=== PATIENT | male | born 1970 | race African-American/Black ===

== ENCOUNTER 2025-02-11 09:20 | Emergency (ER) | payer OTHER, SELFPAY ==
--- OUTSIDE RECORDS SUMMARY | 2024-12-17 06:19 | XMS_ITS | Continuity of Care Document ---
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 [address], [place], [place], [id number], [place]. tel:[phone] Family History Family Member Type Diagnosis Age At Onset No Information Payers Payer name Insurance type Covered constitution party ID Authoriza tion(s) No Information Social History Type Description Quantity Date Captured Comments Sex Male Smoking Status No Information Chief Complaint And Reason For Visit No Information Reason For Referral Reason For Referral No Information History Of Present Illness Encounter Date Complaint History Of Prese nt Illness No Information Functional Status Date Functional Assessmen t No Information Instructions Date Instruction Additional Infor mation No Information Assessments Type Assessment Date No Information Patient Care Teams Name Effective Dates (start - stop) Status Members No Information
--- OUTSIDE RECORDS SUMMARY | 2025-02-10 08:40 | XMS_ITS ---
Author Organization [facility] Address [address] [place] [address] Care Team Providers Care Hand Ii Thermal Cutter Name Role Phone Josafat Edgard Primary Care Provider Juan Quesada Unavailable [phone] Allergies Allergen (clinical drug ingredient) Drug/Non Drug Allergy documented on EMR Reaction Allergy Type Onset Date Status Penicillin Unknown Drug Allergy Active REASON FOR VISIT new patient Medications Medication SIG (Take, Route, Frequency, Duration) Notes Start Date End Date Status Nicotine 7 MG/24HR 1 patch to skin Transdermal Once a day Active hydrOXYzine Pamoate 25 MG 1-2 capsules O rally every 4 hours as needed for anxiety, agitation, or inability to sleep. Do not give within 4 hours of diphenhydramine.; Duration: 30 days 02/08/2025 Active Melatonin 5 MG 1 tablet at bedtime as needed Orally Once a day; Duration: 30 days 02/08/2025 Active Losartan Potassium-HCTZ 50-12.5 MG 1 tablet Orally Once a day; Duration: 30 days Active metFORMIN HCl 500 MG 1 tablet with a claudio l Orally Once a day; Duration: 30 days Active Suboxone 8-2 MG 1 film under the ton patricia and allow to dissolve Sublingual twice a day 02/10/2025 Active Multi Vitamin - 1 tablet Orally Once a day; Duration: 30 days 02/08/2025 Active Nicotine Polacrilex 4 MG 1 lozenge as ne eded for nicotine cravings Mouth/Throat Up to once per hour (maximum of 15 lozenges per day); Duration: 7 days 02/08/2025 Active Social History Tobacco Use: Social History Observation Description Date Details (start date - stop date) Current Smoker NA - NA PRAPARE Question Answer Notes Date Completed/Updated: 02/08/2025 What is your current housing situation? I do not have housing (staying with others, in a hotel, in a fdc, living outside on the street, on a beach, or in a park) Are you worried about losing your housing? Yes What is the highest level of school that you have finished? More than high school What is your current work situation? Unemployed and seeking work In the past year, have you o r any family members you live with been unable to get any of the following when it was really needed? Check all that apply Food,Clothing,Utilities,Medicine or any health care (medical, dental, mental health or vision),Phone Has lack of transportation k ept you from medical appointments, meetings, work or from getting things needed for daily living? Yes, it has kept me from medical appointments or from getting my medications,Yes, it has kept me from non-medical meetings, appointments, work, or getting things needed for daily living How often do you see or talk to people that you care about and feel close to? (For example: talking to friends on the phone, visiting friends or family, going to restoration or club meetings) More than 5 times a week How stressed are you? Stress is when someone feels tense, nervous, anxious, or can\t sleep at night because their mind is troubled Very much In the past year have you sp ent more than 2 nights in a row in a prison, nursing home, nursing home center, or juvenile correctional facility? Yes What was your release date? 11/12/2024 Are you a refugee? I choose not to answer this q uestion What country are you from? I choose not to answe r this question Do you feel physically and e motionally safe where you currently live? No In the past year, have you b een afraid of your partner or ex-partner? No PRAPARE Score: 17 Enabling Services Provided? Yes Please specify Case Management Assessment First Visit Tobacco Control (Standard) Question Answer Notes Tobacco use: Current smoker How often do you smoke cigarettes? Some days, bu t not every day How many cigarettes a day do you smoke? 6-10 Are you interested in quitting? Not ready to morales t Additional Findings: Tobacco user Light cigarett e smoker (1-9 cigs/day) Section Notes: Occupation: Currently working Living situation: Supported by and children at home Problems Problem Type SNOMED Code ICD Code Onset Dates Problem Status W/U Status Risk Notes Problem Opioid use disorder (8944339103) Opioid use disorder (F11.99) Active confirmed Problem Obesity (036365298) Obesity (BMI 30-39.9) (E66.9) Active confirmed Problem Tobacco user (628294856) Nicotine dependence with current use (F17.200) Active confirmed Vital Signs Height 69 in 02/10/2025 BMI 34.82 kg/m2 02/10/2025 Blood pressure systolic 124 mm Hg 02/11/20 25 Blood pressure diastolic 82 mm Hg 025 Heart Rate 75 /min 02/10/2025 Oximetry 98 % 02/10/2025 Respiratory Rate 16 /min 02/10/2025 Weight 235.8 lbs 02/10/2025 Encounters Encounter Location Date Provider Diagnosis [facility] [address] [place] [address] 02/10/2025 Juan Stewartnaveen Opioid use disorder F11.99 ; Obesity (BMI 30-39.9) E66.9 and Nicotine dependence with current use F17.200 Assessments Encounter Date Diagnosis (ICD Code) Assessment Notes Treatment Notes Treatment Clinical Notes Section Notes 02/10/2025 Opioid use disorder (ICD-10 - F11.99) Long-standing opioid use history, including pain pills, heroin, and daily fentanyl use. Last opioid use was five days ago; currently admitted for detox. Started Suboxone at [facility]; currently managed on Suboxone. Experiencing mild withdrawal symptoms as Suboxone wears off. Support from family and ongoing recovery efforts, including online meetings and Narcan availability. - Increase Suboxone dose to 8 mg twice daily. - Send prescription for increased Suboxone dose to pharmacy. - Monitor for side effects such as constipation. - Encourage continued participation in recovery meetings. - Advise keeping Narcan available at home. 02/10/2025 Obesity (BMI 30-39.9) (ICD-10 - E66.9) 02/10/2025 Nicotine dependence with current use (ICD-10 - F17.200) 02/10/2025 Other Discussed medication side effects, adverse effects, risks, benefits, as well as interactions. Encouraged non-use of opioids. Has naloxone. Recommended participation in recovery groups and/or counseling services. May contact office with questions or concerns. Patient may self-administer their own medications or may self-administer their own oral medications per [facility] Protocol. Plan Of Treatment Medication Medication Name Sig Start Date Stop Date Notes Suboxone 8-2 MG 1 film under the ton patricia and allow to dissolve Sublingual twice a day 02/10/2025 Treatment Notes Assessment Notes Opioid use disorder Long-standing opioid use history, including pain pills, heroin, and daily fentanyl use. Last opioid use was five days ago; currently admitted for detox. Started Suboxone at [facility]; currently managed on Suboxone. Experiencing mild withdrawal symptoms as Suboxone wears off. Support from family and ongoing recovery efforts, including online meetings and Narcan availability. - Increase Suboxone dose to 8 mg twice daily. - Send prescription for increased Suboxone dose to pharmacy. - Monitor for side effects such as constipation. - Encourage continued participation in recovery meetings. - Advise keeping Narcan available at home. Other Discussed medication side effects, adverse effects, risks, benefits, as well as interactions. Encouraged non-use of opioids. Has naloxone. Recommended participation in recovery groups and/or counseling services. May contact office with questions or concerns. Next Appt Details Follow Up: 2 Weeks, Reason: MAR f/u Provider Name:Romy Acevedo wy, 02/16/2025 11:00:00 AM, [address] [place] [address], [phone], Progress Notes * Melo COLINDOB:1970 ( 54 yo M)Acc No.[id number]:02/10/2025 Patient: Melo SHAW Provider: Ana Quesada, MSN, OIL SEPARATOR, OXYGEN THERAPY TECHNICIAN-C :1970 A ge:54 Y S ex:Male Date:02/10/2025 Phone: Address:[address] [place], [place] [id number] Pcp:Edgard Maurice Check In:01:43 PM SIMULATION ENGINEER Subjective: * Chief Complaints: * N ew patient * HPI: I nterim History: Emergency room visit Y es. Was hospitalized N o. D epression Screening: PHQ-9 L ittle interest or pleasure in doing things?Several days F eeling down, depressed, or hopeless S ever T rouble falling or staying asleep, or sleeping too much S ever F eeling tired or having little energy S ever P oor appetite or overeating N ot at all F eeling bad about yourself or that you are a failure, or have let yourself or your family down N ot at all T rouble concentrating on things, such as reading the newspaper or watching television S M oving or speaking so slowly that other people could have noticed; or the opposite, being so fidgety or restless that you have been moving around a lot more than usual S T houghts that you would be better off or of hurting yourself in some way N ot at all T otal Score 6 I nterpretation M ild Depression Intervention D epression Screening Findings P ositive F ollow-Up for Depression P atient refused intervention S creening: [place] Suicide Severity Rating Scale (LF) D o you want to initiate with S creener form 1 . Wish to be : Have you wished you were or wished you could go to sleep and not wake up? N o 2 . Suicidal Thoughts: Have you actually had any thoughts of killing yourself? N o 6 . Suicide Behavior Question: Have you ever done anything,started to do anything, or prepared to end your life? N o I nterpretation: L ow Risk C SSRS Interpretation and Follow Up Plan: CSSRS Interpretation and Follow Up Plan C SSRS Screen documented using SF Y es R isk Disposition from SF L ow - No Follow Up Plan Required F ollow Up Plan N o Follow Up Plan required at this time. T imeframe of Screening T wanda Taylor epression: Melo Colin, a 54-year-old male, presented for an acute visit focused on opioid detox and Suboxone management. He described a long-standing history of opioid use, beginning with pain pills, progressing to heroin, and most recently daily fentanyl use at a rate of half to one gram per day. His last use was five days ago, and he is currently admitted to the MRU, having started Suboxone at [facility] prior to this encounter. Melo reported experiencing mild withdrawal symptoms as the Suboxone wears off, expressing uncertainty about the effectiveness of his current dosing and questioning the reduction from 8 mg to 4 mg twice daily. He denied any history of intravenous drug use, non-opioid overdoses, and constipation as a side effect of his medication. Melo discussed his ongoing recovery efforts, including attending some online recovery meetings and maintaining Narcan at home for safety. He shared that his and children are supportive of his recovery, and he is currently working. Melo is considering physical therapy for back pain and plans to remain in the 28-day program. These strategies and supports reflect his commitment to recovery and managing his opioid use disorder. Venancio REGAN Initial Assessment: . Substance use history S ubstance Use History, drugs of choice: H eroin, Methamphetamines, OTHER (specify): fentanyl Addiction Treatment History P rior Medications for MOTA treatment S uboxone T herapy/counseling and Recovery support (peers/groups) H istory of therapy/counseling or engagement with recovery support peer/groups P ast involvement in r ecovery support groups (AA/NA, etc.) C urrently involved in recovery support groups (AA, NA, etc.) services? Y es History of Infectious Diseases H istory of viral hepatitis N o H istory of HIV N o H istory of TB N o H istory of other infectious diseases N o History of IV drug use and related infections H istory of injection drug use? N o Acute Trauma A cute Trauma N o Psychiatric History H istory of psychiatric diagnoses? N o Primary Care H as a primary care provider? Y es. See notes for provider. Dr. Gallo courtney primary care visit: Jasvir dominguez last year D isclosure authorization obtained? Y es. staff auditor will obtain disclosure authorization. Assessment and history specific to females F emale/Female at ? N o Hepatitis A and B vaccination status V accination status Hep A D enies vaccination to Hep A. Vaccination encouraged and resources offered. V accination status, Hep B R eports vaccination for Hep B Housing Stability and Employment I s housing stable/safe? 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 Support System: H as a support system: Y es (specify): significant other and children Narcan Access H as Narcan and has been trained on its use??Yes. Prescription Drug Monitoring Program P rescription Drug Monitoring Program reviewed? Y es. No concerns identified. * ROS: B asic ROS: Denies C hills. S weats Admits. A dmits C onstipation. I nsomnia D enies. D enies A nxiety. D enies D epressed Mood.?Denies S uicidal Thoughts. * Medical History: * Surgical History: D enies Past Surgical History * Hospitalization/Major Diagno stic Procedure: B [facility] - detox 01/2025 * Family History: F ather: alive. M other: alive. 1 brother(s) - healthy. . * Social History: P rimary Social History: L iving Arrangement L iving Arrangement: H omeless Alcohol Use A lcohol Use Frequency: W eekly or Daily Illicit Substance Usage I llicit Substance Usage: Y es I nterested in quitting: Y es S ubstance Used: M ethamphetamine Single Question Alcohol Screening H ow many times in the past year have you had (4 for women, or 5 for men) or more drinks in a day? 0 S ocial Determinants: P RAPARE D ate Completed/Updated: 0 02/08/2025 W hat is your current housing situation? I do not have housing (staying with others, in a hotel, in a fdc, living outside on the street, on a beach, or in a park) A re you worried about losing your housing??Yes W hat is the highest level of school that you have finished? M ore than high school W hat is your current work situation? U nemployed and seeking work I n the past year, have you or any family members you live with been unable to get any of the following when it was really needed? Check all that apply F ood,Clothing,Utilities,Medicine or any health care (medical, dental, mental health or vision),Phone H as lack of transportation kept you from medical appointments, meetings, work or from getting things needed for daily living? Y es, it has kept me from medical appointments or from getting my medications,Yes, it has kept me from non-medical meetings, appointments, work, or getting things needed for daily living H ow often do you see or talk to people that you care about and feel close to? (For example: talking to friends on the phone, visiting friends or family, going to restoration or club meetings) M ore than 5 times a week H ow stressed are you? Stress is when someone feels tense, nervous, anxious, or can\t sleep at night because their mind is troubled V jolene much I n the past year have you spent more than 2 nights in a row in a prison, nursing home, nursing home center, or juvenile correctional facility? Y es W hat was your release date? 0 11/12/2024 A re you a refugee? I choose not to answer this question W hat country are you from? I choose not to answer this question D o you feel physically and emotionally safe where you currently live? N o I n the past year, have you been afraid of your partner or ex-partner? N o P RAPARE Score: 1 7 E nabling Services Provided? Y es P lease specify C ase Management Assessment First Visit T obacco Use: T obacco Control (Standard) T obacco use: C urrent smoker H ow often do you smoke cigarettes? S ome days, but not every day H ow many cigarettes a day do you smoke? 6 -10 A re you interested in quitting? N ot ready to quit A dditional Findings: Tobacco user L ight cigarette smoker (1-9 cigs/day) M iscellaneous: M ethod of learning P referred method of learning: Anup Syed ccupation: Currently working Living situation: Supported by and children at home. * Medications: T akingNicotine Polacrilex 4 MG Lozenge 1 lozenge as needed for nicotine cravings Mouth/Throat Up to once per hour (maximum of 15 lozenges per day) Multi Vitamin - Tablet 1 tablet Orally Once a day Melatonin 5 MG Tablet 1 tablet at bedtime as needed Orally Once a day hydrOXYzine Pamoate 25 MG Capsule 1-2 capsules Orally every 4 hours as needed for anxiety, agitation, or inability to sleep. Do not give within 4 hours of diphenhydramine. Suboxone 4-1 MG Film 1 film under the tongue and allow to dissolve Sublingual twice a day Nicotine 7 MG/24HR Patch 24 Hour 1 patch to skin Transdermal Once a day Losartan Potassium-HCTZ 50-12.5 MG Tablet 1 tablet Orally Once a day metFORMIN HCl 500 MG Tablet 1 tablet with a meal Orally Once a day Medication List reviewed and reconciled with the patientTaking Nicotine Polacrilex 4 MG Lozenge 1 lozenge as needed for nicotine cravings Mouth/Throat Up to once per hour (maximum of 15 lozenges per day) Taking Multi Vitamin - Tablet 1 tablet Orally Once a day Taking Melatonin 5 MG Tablet 1 tablet at bedtime as needed Orally Once a day Taking hydrOXYzine Pamoate 25 MG Capsule 1-2 capsules Orally every 4 hours as needed for anxiety, agitation, or inability to sleep. Do not give within 4 hours of diphenhydramine. Taking Suboxone 4-1 MG Film 1 film under the tongue and allow to dissolve Sublingual twice a day Taking Nicotine 7 MG/24HR Patch 24 Hour 1 patch to skin Transdermal Once a day Taking Losartan Potassium-HCTZ 50-12.5 MG Tablet 1 tablet Orally Once a day Taking metFORMIN HCl 500 MG Tablet 1 tablet with a meal Orally Once a day Medication List reviewed and reconciled with the patient * Allergies: P enicillinno[Allergies Verified] Objective: * Vitals: I nitials:KS, Wt:235.8, Ht:69, BMI:34.82, BP:124/82, HR:75, Oxygen sat %:98, RR:16, Pain scale:7. * Examination: A [facility] Physical Assessment: Intoxication and Withdrawal signs I ntoxication signs N o signs of intoxication are present during examination. W ithdrawal Signs N o withdrawal signs are present during examination. . G eneral Examination: GENERAL APPEARANCE: p leasant, in no acute distress. SKIN: w arm and dry. HEART: r egular rate and rhythm. LUNGS: r espirations regular and easy. PSYCH: a lert, oriented x4, speech clear, good eye contact, full range of affect/positive mood, thought process logical, goal directed. Assessment: * Assessment: 1. O besity (BMI 30-39.9) - E66.9 2 . O pioid use disorder - F11.99 (Primary) 3 . N icotine dependence with current use - F17.200 Plan: * Treatment: 2. O thers Notes: Discussed medication side effects, adverse effects, risks, benefits, as well as interactions. Encouraged non-use of opioids. Has naloxone. Recommended participation in recovery groups and/or counseling services. May contact office with questions or concerns. Clinical Notes: Patient may self-administer their own medications or may self-administer their own oral medications per [facility] Protocol. * Recommended Wellness and Pre vention Guidelines: * S tatus A lert L ast Done N ext Due A ction Taken N ONCOMPLIANT C olorectal cancer screening - 0 02/10/2025 - - N ONCOMPLIANT H IV screening - 0 02/10/2025 - - * Procedure Codes: 9 8960 SELF-MGMT EDUC & TRAIN, 1 [id number] BODY MASS INDEX DOCD * Preventive Medicine: Counseling: S MOKING: Patient counselled on the dangers of tobacco use and urged to quit. . C are goal follow-up plan: BMI management provided Y es Above Normal BMI Follow-up L ifestyle education regarding diet * Follow Up: 2 Weeks (Reason: Jul/) * * Sign off status: Completed true * Provider: Ana Quesada MSN, PRADIP, OXYGEN THERAPY TECHNICIAN-C Date: 0 02/10/2025 Generated for Raj ferraro/Bryant/Rohitransmitting on: 0 02/11/2025 11:08 AM CDT History and Physical Notes * HPI (History of Present Illness) Category Sub-Category Detail Notes Category Not es Interim History Was hospitalized No Emergency room visit Yes Depression Melo Colin, a 54-year-old male, presented for an acute visit focused on opioid detox and Suboxone management. He described a long-standing history of opioid use, beginning with pain pills, progressing to heroin, and most recently daily fentanyl use at a rate of half to one gram per day. His last use was five days ago, and he is currently admitted to the MRU, having started Suboxone at [facility] prior to this encounter. Melo reported experiencing mild withdrawal symptoms as the Suboxone wears off, expressing uncertainty about the effectiveness of his current dosing and questioning the reduction from 8 mg to 4 mg twice daily. He denied any history of intravenous drug use, non-opioid overdoses, and constipation as a side effect of his medication. Melo discussed his ongoing recovery efforts, including attending some online recovery meetings and maintaining Narcan at home for safety. He shared that his and children are supportive of his recovery, and he is currently working. Melo is considering physical therapy for back pain and plans to remain in the 28-day program. These strategies and supports reflect his commitment to recovery and managing his opioid use disorder. Depression Screening PHQ-9 Little inte rest or pleasure in doing things: Several days Feeling down, depressed, or hopeless: Se veral days Trouble falling or staying asleep, or sl eeping too much: Several days Feeling tired or having little energy: S everal days Poor appetite or overeating: Not at all Feeling bad about yourself o r that you are a failure, or have let yourself or your family down: Not at all Trouble concentrating on thi ngs, such as reading the newspaper or watching television: Several days Moving or speaking so slowly that other people could have noticed; or the opposite, being so fidgety or restless that you have been moving around a lot more than usual: Several days Thoughts that you would be b juanjo off or of hurting yourself in some way: Not at all Total Score: 6 Interpretation: Mild Depression Intervention Depression Screening Findings: P ositive Follow-Up for Depression: Patient refuse d intervention Screening [place] Suicide Sev erity Rating Scale (LF) Do you want to initiate with: Screener form 1. Wish to be : Have you wished you were or wished you could go to sleep and not wake up?: No 2. Suicidal Thoughts: Have you actually had any thoughts of killing yourself?: No 6. Suicide Behavior Question: Have you ever done anything,started to do anything, or prepared to end your life?: No Interpretation:: Low Risk MAR Initial Assessment History of Infect ious Diseases History of viral hepatitis: No History of HIV: No History of TB: No History of other infectious diseases: No Acute Trauma Acute Trauma: No History of IV drug use and r elated infections History of injection drug use?: No Psychiatric History History of psychiatric diagn oses?: No Substance use history Substance Use Hist ory, drugs of choice:: Heroin, Methamphetamines, OTHER (specify): fentanyl Addiction Treatment History Prior Medica tions for MOTA treatment: Suboxone Therapy/counseling and Recov jolene support (peers/groups): History of therapy/counseling or engagement with recovery support peer/groups Past involvement in: recovery support groups (AA/NA, etc.) Currently involved in recovery support groups (AA, NA, etc.) services?: Yes Primary Care Has a primary care provider?: Kelton le See notes for provider. Dr. Holder Last primary care visit:: Within last year Disclosure authorization obtained?: Yes. staff auditor will obtain disclosure authorization. Assessment and history speci fic to females Female/Female at ?: No Hepatitis A and B vaccination status Vac cination status Hep A: Denies vaccination to Hep A. Vaccination encouraged and resources offered. 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 Support System: Has a support system :: Yes (specify): significant other and children Narcan Access Has Narcan and has b een trained on its use?: Yes. Prescription Drug Monitoring Program Prescription Drug Monitoring Program reviewed?: Yes. No concerns identified. CSSRS Interpretation and Follow Up Plan CSSRS Interpretation and Follow Up Plan CSSRS Screen documented using SF: Yes Risk Disposition from SF: Low - No Follo w Up Plan Required Follow Up Plan: No Follow Up Plan requir ed at this time. Timeframe of Screening: Today Examination Category Sub-Category Detail Notes Category Not es General Examination GENERAL APPEARANCE: pleasant, in n o acute distress HEART: regular rate and rhy thm LUNGS: respirations regular and easy SKIN: warm and dry PSYCH: alert, oriented x4, speech clear, good eye contact, full range of affect/positive mood, thought process logical, goal directed ASAM Physical Assessment Intoxication an d Withdrawal signs Intoxication signs: No signs of intoxication are present during examination. . Withdrawal Signs: No withdrawal signs ar e present during examination.
--- NOTE | ~2025-02-11 | CT_ITS ---
EXAMINATION: CTA chest PE protocol, 02/11/2025 10:28 CDT HISTORY: right sided chest pain COMPARISON: No comparisons available. TECHNIQUE: CTA examination is obtained with contrast CTA examination technique is performed with arterial phase of contrast-enhancement. 3-D reconstruction with thin MIP axial and MPR coronal imaging is provided Isovue 300, 92cc injected IV. One or more of the following dose reduction techniques were used: automated exposure control, adjustment of the mA and/or kV according to patient size, use of iterative reconstruction technique. FINDINGS: No significant coronary calcification is present ([id number]) LUNGS: Contrast bolus limited, there is no gross central pulmonary embolism identified. No tracheomalacia. No bronchiectasis. Minimal emphysematous changes. Minimal pulmonary fibrotic changes. No honeycombing or evidence of bullous formation. There are scattered sub-2 mm micronodules. HEART AND PERICARDIUM: Mild cardiomegaly. AORTA: Normal caliber aorta.. PULMONARY ARTERIES: No pulmonary embolism ADENOPATHY/MEDIASTINUM: None. LIMITED VIEWS OF THE ABDOMEN: Within normal limits. OSSEOUS STRUCTURES: No sclerotic or lytic lesions. No acute rib fractures. OVERLYING SOFT TISSUES: Unremarkable. THYROID: The thyroid is unremarkable. IMPRESSION: 1. Negative for pulmonary embolism. No acute process. Incidental findings above Reviewed, dictated and finalized at location A.
--- NOTE | ~2025-02-11 | XR_ITS ---
Examination: XR chest 2V Clinical History: chest pain, mid sternal, h/o HTN Comparison: None Technique: PA and Lateral Findings: Heart size upper limit of normal. Lungs clear. No acute bony abnormality. IMPRESSION: 1. No acute cardiopulmonary findings. Reviewed, dictated and finalized at location R.
--- NOTE | 2025-02-11 09:23 | ECG_ITS ---
Test Date: 2025-02-11 09:27:50 Measurements Intervals [place] Rate: 67 P: 54 CO: 180 QRS: 18 QRSD: 104 T: 30 QT: 398 QTc: 421 Interpretive Statements SINUS RHYTHM NONSPECIFIC T-WAVE ABNORMALITY BORDERLINE ECG No previous ECG available for comparison Electronically Signed On 02-11-2025 12:44:34 CDT by Trey Lim M.D.
[2025-02-11 09:32] VITALS: BP 128/69; PULSE 64; RESP 14; TEMP 36.7; O2SAT 100
[2025-02-11 09:38] VITALS: O2SAT 100
[2025-02-11 09:39] VITALS: PULSE 64
[2025-02-11 09:46] LABS: Hematocrit 40.5 % (42.0-52.0); Hemoglobin 13.1 g/dL (14.0-18.0); Immature Granulocyte Percent A 0.2 % (0-0.5); Lymphocytes Absolute Auto 2.81 K/mm3 (0.9-3.2); Mean Corpuscular HGB Conc 32.3 g/dl (32-36); Mean Corpuscular Hemoglobin 30.0 pg (26-34); Mean Corpuscular Volume 92.7 fl (80-100); Nucleated Red Blood Cells Absolute Auto 0.000 K/mm3 (0.0-0.012); Nucleated Red Blood Cells Perc 0.0 % (0.0-0.2); Platelet Count Result 258 k/mm3 (150-375); Red Blood Count 4.37 M/mm3 (4.6-6.20); White Blood Count 8.2 K/mm3 (4.5-10.0)
[2025-02-11 09:56] LABS: INR 0.9; Prothrombin Time 12.3 Seconds (11.1-14.7)
[2025-02-11 09:57] LABS: Partial Thromboplastin Time 31.0 Seconds (22.3-36.8)
--- NOTE | 2025-02-11 10:01 | ED.GENADULT ---
HPI - General Adult General Chief complaint: Chest Pain Stated complaint: chest pain x2d Time Seen by Provider: 02/11/25 09:24 History of Present Illness HPI narrative: 54-year-old male presents to the emergency department for evaluation for intermittent right-sided chest pain it has been ongoing for the last 2 days. Patient describes a right-sided sharp chest pain that is worsened with inspiration it sometimes. At time of evaluation patient denies any current chest pain or chest pressure. Patient denies any radiation of the pain to his neck back or arms. Patient denies any associated shortness of breath. Patient denies any prior cardiac history. Patient also does have some lower extremity edema bilaterally. Patient is currently at [facility] for fentanyl rehabilitation Related Data Allergies Allergy/AdvReac Type Severity Reaction Status Date / Time Penicillins Allergy Severe Hives Verified 02/11/25 09:43 Review of Systems Review of Systems: All systems reviewed & are unremarkable except as noted in HPI and below Exam Narrative: APPEARANCE: Well appearing, no pain, no distress, well-nourished. HEAD: normocephalic, atraumatic. EYES: PERRLA/EOMI, conjunctivae clear. NOSE: Normal no drainage EARS:TMS clear with good light reflex. THROAT: Pharynx clear, no exudate. NECK: Supple. No adenopathy, no masses. RESPIRATORY: Airway patent, respirations nonlabored. Clear to auscultation bilaterally, no rales, rhonchi, wheezing. CARDIOVASCULAR: Regular rate and rhythm without murmurs rubs or gallops. ABDOMINAL: Soft, nontender, nondistended, normal bowel sounds MUSCULOSKELETAL: Moves all extremities. Strength/ROM intact, No edema, No calf tenderness. NEURO: Alert. Cranial nerves II through XII intact. Good gait. Good coordination SKIN: Warm, dry. Normal Color Course Vital Signs Vital signs: Vital Signs Temperature 98.0 F 02/11/25 09:32 Pulse Rate 64 02/11/25 09:32 Respiratory Rate 14 02/11/25 09:32 Blood Pressure 128/69 02/11/25 09:32 Pulse Oximetry 100 02/11/25 09:32 Oxygen Delivery Room Air 02/11/25 09:32 Temperature 98.0 F 02/11/25 09:32 Pulse Rate 56 L 02/11/25 13:00 Respiratory Rate 16 02/11/25 13:00 Blood Pressure 138/64 02/11/25 13:00 Pulse Oximetry 98 02/11/25 13:00 Oxygen Delivery Room Air 02/11/25 09:38 Medical Decision Making MDM Narrative Medical decision making narrative: 54-year-old male present to the emergency department for evaluation for right-sided chest wall pain. Patient is currently afebrile with no leukocytosis, hemoglobin 13.1. Patient has INR of 0.9. No acute abnormalities on the CMP and patient had negative serial troponins and a normal BNP. CTA was negative for pulmonary embolism. Patient's drug screen was negative. Patient's symptoms are less concerning for pulmonary is some and ACS. Patient does describe symptoms consistent with pleurisy. Patient's leg swelling is bilateral patient does not have a significantly elevated proBNP. Low concern for DVT. No evidence of cellulitis. Patient was updated the results of the workup. Patient was advised to take Tylenol and ibuprofen for pain control and have close follow-up with his primary care physician. Differential Diagnosis Differential Diagnosis: Pneumonia, pleurisy, pulmonary embolism ACS, pneumothorax Vital Signs Vital Signs: Vital Signs Temperature 98.0 F 02/11/25 09:32 Pulse Rate 64 02/11/25 09:32 Respiratory Rate 14 02/11/25 09:32 Blood Pressure 128/69 02/11/25 09:32 Pulse Oximetry 100 02/11/25 09:32 Oxygen Delivery Room Air 02/11/25 09:32 Temperature 98.0 F 02/11/25 09:32 Pulse Rate 56 L 02/11/25 13:00 Respiratory Rate 16 02/11/25 13:00 Blood Pressure 138/64 02/11/25 13:00 Pulse Oximetry 98 02/11/25 13:00 Oxygen Delivery Room Air 02/11/25 09:38 Lab Data Lab results reviewed: Yes I reviewed the patient's lab results. 02/11/25 09:35 02/11/25 09:35 Labs: Lab Results 02/11/25 02/11/25 02/11/25 Range/Units 09:35 11:18 12:25 WBC 8.2 (4.5-10.0) K/mm3 RBC 4.37 L (4.6-6.20) M/mm3 Hgb 13.1 L (14.0-18.0) g/dL Hct 40.5 L (42.0-52.0) % MCV 92.7 (80-100) fl MCH 30.0 (26-34) pg MCHC 32.3 (32-36) g/dl RDW 15.6 H (11.5-14.5) % Plt Count 258 (150-375) k/mm3 MPV 9.5 (7.4-10.4) fl Immature Gran % (Auto) 0.2 (0-0.5) % Neut % (Auto) 55.9 (45.5-73.1) % Lymph % (Auto) 34.1 (18.3-44.2) % [place] % (Auto) 7.5 (2.6-8.5) % Eos % (Auto) 1.8 (0-4.4) % Baso % (Auto) 0.5 (0.2-1.2) % Lymph # (Auto) 2.81 (0.9-3.2) K/mm3 [place] # (Auto) 0.6 (0.1-0.6) K/mm3 Eos # (Auto) 0.2 (0-0.3) K/mm3 Baso # (Auto) 0.0 (0.0-0.1) K/mm3 Abs Immat Gran (auto) 0.02 (0.00-0.031) K/mm3 Absolute Neuts (auto) 4.6 (1.3-6.7) K/mm3 Absolute Nucleated RBC 0.000 (0.0-0.012) K/mm3 Nucleated RBC % 0.0 (0.0-0.2) % PT 12.3 (11.1-14.7) Seconds INR 0.9 APTT 31.0 (22.3-36.8) Seconds Sodium 137 (137-145) mmol/L Potassium 3.9 (3.4-5.0) mmol/L Chloride 103 (98-107) mmol/L Carbon Dioxide 28 (22-30) mmol/L Anion Gap 6 (4-12) mmol/L BUN 19 (9-20) mg/dL Creatinine 1.05 (0.7-1.3) mg/dL Estim Creat Clear Calc 87 ml/min Estimated GFR > 60 (59 - ) Glucose 121 H (65-110) mg/dL Calcium 9.3 (8.4-10.2) mg/dL Total Bilirubin 0.2 (0.2-1.3) mg/dL AST 22 (17-59) U/L ALT 17 (6-50) U/L Alkaline Phosphatase 96 (38-126) U/L Troponin I < 0.012 < 0.012 (0.000-0.034) ng/mL NT-Pro-B Natriuret Pep < 20 (19.9-100) pg/mL Total Protein 7.2 (6.3-8.2) g/dL Albumin 3.9 (3.5-5.1) g/dL Lipase 58 (23-300) U/L Urine Opiates Screen Negative (Negative) Urine Methadone Screen Negative (Negative) Ur Barbiturates Screen Negative (Negative) Ur Phencyclidine Scrn Negative (Negative) Ur Amphetamine Screen Negative (Negative) U Benzodiazepines Scrn Negative (Negative) Urine Cocaine Screen Negative (Negative) U Cannabinoids Screen Negative (Negative) Imaging Data My impression: Chest x-ray: No acute cardiopulmonary abnormality Radiologist's impression: Impressions Chest X-Ray 02/11/25 10:29 IMPRESSION: 1. No acute cardiopulmonary findings. Chest CTA 02/11/25 10:55 IMPRESSION: 1. Negative for pulmonary embolism. No acute process. Incidental findings above ECG Data EKG #1: EKG Interpretation: bradycardia, sinus rhythm, no ectopy, non-specific ST changes, normal QRS, normal QT and NL axis Discharge Plan Discharge Clinical Impression: Atypical chest pain, Leg edema Patient Disposition: Home Condition: Stable Instructions: Antibiotic Form, Chest Wall Pain (ED), Edema (ED) Additional Instructions: Have close follow-up with your primary care physician. If you have any worsening symptoms then please call or return to the emergency department. Patient Language: [place] Follow-up/Referrals: Gallo,Armando Raymond MD [Primary Care Provider] Quality HEART score for chest pain patients History: slightly suspicious ECG: normal Age: > 45 and < 65 years Risk factors: 1 or 2 risk factors Troponin: < or = to 1x normal limit Heart score: 2
--- NOTE | 2025-02-11 10:10 | PC.NURSE ---
called lab to add on BNP
[2025-02-11 10:11] LABS: Alanine Aminotransferase 17 U/L (6-50); Albumin Level 3.9 g/dL (3.5-5.1); Alkaline Phosphatase 96 U/L (38-126); Anion Gap 6 mmol/L (4-12); Aspartate Amino Transferase 22 U/L (17-59); Bilirubin,Total 0.2 mg/dL (0.2-1.3); Blood Urea Nitrogen 19 mg/dL (9-20); Calcium 9.3 mg/dL (8.4-10.2); Carbon Dioxide 28 mmol/L (22-30); Chloride 103 mmol/L (98-107); Estimated CRCL calculation 87 ml/min; Estimated Glomerular Filt Rate > 60; Glucose 121 mg/dL (65-110); Lipase 58 U/L (23-300); Potassium 3.9 mmol/L (3.4-5.0); Sodium 137 mmol/L (137-145); Total Protein 7.2 g/dL (6.3-8.2)
[2025-02-11 10:18] LABS: Troponin I < 0.012 ng/mL (0.000-0.034)
[2025-02-11 10:31] LABS: NT Pro B Type Natriuretic Pept < 20 pg/mL (19.9-100)
[2025-02-11 10:46] VITALS: BP 128/70; PULSE 81; RESP 11; O2SAT 100
[2025-02-11 11:01] VITALS: PULSE 72; RESP 13; O2SAT 96
[2025-02-11] MEDS: KETOROLAC 15 MG/ML VIAL (*BKC) IV PUSH (11:03)
--- OUTSIDE RECORDS SUMMARY | 2025-02-11 11:08 | XMS_ITS | Clinical Summary ---
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 30 tablet 06/09/2021 Active Family History Relation Status Comments Father Alive Mother Alive Social History Tobacco Use Types Packs/Day Years Used Date Smoking Tobacco: Every Day Cigarettes Smokeless Tobacco: Never Alcohol Use Standard Drinks/Week Comments Yes 0 (1 standard drink = 0.6 oz pur e alcohol) Sex and Gender Information Value Date Recorded Sex Assigned at Not on file Legal Sex Male 8:19 PM CDT Gender Identity Not on file Sexual Orientation Not on file Last Filed Vital Signs Vital Sign Reading Time Taken Comments Blood Pressure 155/97 06/09/2021 8:45 PM INTER[employer] SAL[employer]ERSON Pulse 109 06/09/2021 6:48 PM INTER[employer] SALESPERSON Temperature 36.6 C (97.9 F) 06/09/2021 6:48 PM INTER[employer] SALESPERSON Respiratory Rate 20 06/09/2021 6:48 PM INTER[employer] SALESPERSON Oxygen Saturation 98% 06/09/2021 6:48 PM INTERNET SALESPERSON Inhaled Oxygen Concentration - - Weight 103.9 kg (229 lb) 06/02/2018 3:24 PM INTERNET SALESPERSON Height 175.3 cm (5' 9) 06/09/2021 6:48 PM INTER[employer] SALESPERSON Body Mass Index 33.82 06/02/2018 3:24 PM INTERNET SALESPERSON Plan of Treatment Health Maintenance Due Date Last Done Comments Colorectal Cancer Screening Colonoscopy (10 Years) 1972 Annual Physical 1975 Hepatitis C 1990 Hepatitis B Vaccines (1 of 3 - 19+ 3-dose series) 1991 Pneumococcal Vaccine: 50+ Ye ars (1 of 2 - PCV) 1991 Zoster Vaccines (1 of 2) 2022 COVID-19 Vaccine (1 - 2023-2 5 season) 2025 DTaP, Tdap and Td Vaccines ( 2 - Td or Tdap) 01/02/2031 01/02/2021 Meningococcal B Vaccine Aged Out No l onger eligible based on patient's age to complete this topic Meningococcal Vaccine Aged Out No gabriel mariel eligible based on patient's age to complete this topic RSV Immunizations Under 20 Months Aged Out No longer eligible based on patient's age to complete this topic [place] [address] [place] [address] [facility] Care Teams Strawhat Blocking Operator Relationship Specialty Start Date End Date Armando Holder MD PCP - General 11/16/15
--- OUTSIDE RECORDS SUMMARY | 2025-02-11 11:08 | XMS_ITS | Clinical Summary ---
Author Organization [facility] Address [address] [place] [address] Care Team Providers Care Folder Seamer Automatic Name Role Phone Armando Holder MD Primary Care Provider [phone] Allergies Active Allergy Reactions Criticality Noted Date Comments Penicillins Rash Medium 09/12/2021 As a child Medications metFORMIN (GLUCOPHAGE) 500 mg tablet Take 1 tablet (500 mg total) by mouth daily with breakfast 30 tablet 2 11/20/19 25 Active losartan-hydr oCHLOROthiazi de (HYZAAR) 50-12.5 mg per tablet Take 1 tablet by mouth daily Active buprenorphine -naloxone (SUBOXONE) 4-[address] 1 Film under the tongue 2 (two) times a day 14 Film 02/09/20 25 Active nicotine (NICODERM CQ) [address] 1 patch on the skin daily for 24 hours 30 patch 1 02/09/20 25 025 Active buprenorphine -naloxone (SUBOXONE) 4-1 mg per filmIndicatio ns:Opioid Withdrawal Symptoms Place 1 Film under the tongue 2 (two) times a day for 7 days Please see PCP for continued prescription 14 Film 11/20/19 25 025 Discontinued(A lternate therapy) lisinopriL (PRINIVIL,ZES TRIL) 20 mg tablet Take 1 tablet (20 mg total) by mouth daily 30 tablet 2 11/21/19 25 025 Discontinued(A lternate therapy) nicotine (NICODERM CQ) [address] 1 patch on the skin daily for 24 hours 30 patch 2 07/09/06 24 025 Discontinued(T herapy completed) naloxone (NARCAN) 4 mg/actuation spray,non-aer osol Administer 1 spray into affected nostril(s) as needed for opioid reversal Call 911. Administer a single spray in one nostril. Repeat every 3 minutes as needed if no or minimal response. 2 each 11/20/19 025 Discontinued(T herapy completed) buprenorphine -naloxone (SUBOXONE) 4-[address] 1 Film under the tongue daily 025 Discontinued Active Problems Problem Noted Date Diagnosed Date Opioid use disorder 02/04/2025 HTN (hypertension) 11/18/2024 DM (diabetes mellitus) 11/18/2024 Overview (11/18/2024): Polysubstance abuse 11/17/2024 Encounters Date Type Department Care Team Description 02/04/2025 10:21 AM CDT - 02/08/2025 8:00 AM CDT Hospital Encounter [address] [address] Hilton Garnica DO Lun, Yu, MD Bondalapati, Naveen Kumar Reddy, MD Opioid use disorder (Primary Dx); Methamphetamine use (HCC); Abnormal magnetic resonance imaging of soft tissue of neck Discharge Disposition: Discharge to other rehab with plan readmit 12/28/2024 [facility] [address] [place] [id number] Lynnette Mitchell 11/17/2024 1:51 PM CDT - 11/19/2024 11:30 AM CDT Hospital Encounter [address] [address] Tami Boston MD Patel, Satyen V., MD Lun, Yu, MD Polysubstance abuse (HCC) (Primary Dx) Discharge Disposition: Discharge to home or self care from Last 3 Months Medical History Medical History Date Comments HTN (hypertension) Type 2 diabetes mellitus Social History Tobacco Use Types Packs/Day Years Used Date Smoking Tobacco: Every Day Alcohol Use Standard Drinks/Week Comments Yes 0 (1 standard drink = 0.6 oz pur e alcohol) Social Connection and Isolation Panel Answer Date Recorded In a typical week, how many times do you talk on the phone with family, friends, or neighbors? Three times a week 11/18/2024 How often do you get togethe r with friends or relatives? Three times a week 11/18/2024 How often do you attend chur ch or presybeterian services? Never 11/18/2024 Do you belong to any clubs o r organizations such as congregational groups, Re[employer], [employer] or athletic groups, or school groups? No 11/18/2024 How often do you attend meet ings of the clubs or organizations you belong to? Never 11/18/2024 Are you , , di vorced, , never , or living with a partner? 11/18/2024 Overall Financial Resource Strain (CARDIA) Answe r Date Recorded How hard is it for you to pa y for the very basics like food, housing, medical care, and heating? Not very hard 11/18/2024 PRAPARE - Transportation Answer Date Re corded In the past 12 months, has l ack of transportation kept you from medical appointments or from getting medications? No 06/2024 In the past 12 months, has l ack of transportation kept you from meetings, work, or from getting things needed for daily living? No 11/18/2024 Housing Stability Vital Sign Answer Olvin e Recorded In the last 12 months, was t here a time when you were not able to pay the mortgage or rent on time? No 11/18/2024 In the past 12 months, how m any times have you moved where you were living? 0 11/18/2024 At any time in the past 12 m [facility], were you homeless or living in a residential (including now)? No 11/18/2024 Social Connection and Isolation Panel Answer Date Recorded In a typical week, how many times do you talk on the phone with family, friends, or neighbors? Three times a week 02/05/2025 How often do you get togethe r with friends or relatives? Twice a week 02/05/2025 How often do you attend chur ch or presybeterian services? Never 02/05/2025 Do you belong to any clubs o r organizations such as congregational groups, Re[employer], [employer] or athletic groups, or school groups? No 02/05/2025 How often do you attend meet ings of the clubs or organizations you belong to? Never 02/05/2025 Are you , , di vorced, , never , or living with a partner? 02/05/2025 Overall Financial Resource Strain (CARDIA) Answe r Date Recorded How hard is it for you to pa y for the very basics like food, housing, medical care, and heating? Very hard 02/05/2025 Hunger Vital Sign Answer Date Recorded Within the past 12 months, y ou worried that your food would run out before you got the money to buy more. Sometimes true Within the past 12 months, t he food you bought just didn't last and you didn't have money to get more. Sometimes true PRAPARE - Transportation Answer Date Re corded In the past 12 months, has l ack of transportation kept you from medical appointments or from getting medications? No 01/18 In the past 12 months, has l ack of transportation kept you from meetings, work, or from getting things needed for daily living? No 02/05/2025 Housing Stability Vital Sign Answer Olvin e Recorded In the last 12 months, was t here a time when you were not able to pay the mortgage or rent on time? Yes 02/05/2025 In the past 12 months, how m any times have you moved where you were living? 2 02/05/2025 At any time in the past 12 m [facility], were you homeless or living in a residential (including now)? Yes 02/05/2025 [facility] Utilities Answer Date Recorded In the past 12 months has e [employer], gas, oil, or water [employer] threatened to shut off services in your home? No 02/05/2025 Personal Safety Answer Date Recorded Have you ever been in or are you currently in a harmful physical or emotional relationship or is someone making you feel afraid or unsafe? Denies 02/04/2025 Sex and Gender Information Value Date Recorded Sex Assigned at Not on file Legal Sex Male 6:27 PM [employer] Gender Identity Not on file Sexual Orientation Not on file Obstetrics History Last Filed Vital Signs Vital Sign Reading Time Taken Comments Blood Pressure 147/84 02/08/2025 7:39 AM CDT Pulse 69 02/08/2025 7:39 AM CDT Temperature 37 C (98.6 F) 02/08/2025 4:05 AM CDT Respiratory Rate 18 02/08/2025 4:05 AM CDT Oxygen Saturation 98% 02/08/2025 4:05 AM CDT Inhaled Oxygen Concentration - - Weight 103.1 kg (227 lb 4.8 oz) 02/04/2025 2:06 PM CDT Height 175.3 cm (5' 9) 02/04/2025 2:06 PM CDT Body Mass Index 33.57 02/04/2025 2:06 PM CDT Plan of Treatment Health Maintenance Due Date Last Done Comments Albumin Creatinine Ratio, Urine 1972 Colon Cancer Screening-Colonoscopy 1972 Depression Screening 1972 Prostate Cancer Screening-PSA 1972 Dilated Eye Exam 1972 Foot Exam 1972 Regular Well Visit/Exam 18-64 1990 Pneumococcal vaccine <65 (1 of 2 - PCV) 1991 Lipid Panel 08/21/2018 08/21/2017 Zoster Vaccine (1 of 2) 2022 Influenza Vaccine (#1) 2025 Hemoglobin A1C 08/05/2025 02/05/2025, 07/0 05/2024, 11/17/2024 eGFR 02/08/2026 02/08/2025, 09/2 05/2024, 02/05/2025, Additional history exists DTaP/Tdap/Td Vaccine (2 - Td or Tdap) 01/02/2031 01/02/2021 Hepatitis B Screening Completed 02/04/2025 Hepatitis C Screening Completed 02/04/2025 Procedures Procedure Name Priority Date/Time Associated Diagnosis Comments POCT GLUCOSE DEVICE Routine 02/08/2025 7 :46 AM CDT EGFR Routine 02/08/2025 7:33 AM CDT RENAL FUNCTION PANEL Routine 02/08/2025 7:33 AM CDT POCT GLUCOSE DEVICE Routine 02/07/2025 8 :02 PM CDT POCT GLUCOSE DEVICE Routine 02/07/2025 5 :04 PM CDT POCT GLUCOSE DEVICE Routine 02/07/2025 1 2:42 PM CDT POCT GLUCOSE DEVICE Routine 02/07/2025 8 :43 AM CDT EGFR Routine 02/07/2025 6:34 AM CDT MAGNESIUM Routine 02/07/2025 6:34 AM CDT RENAL FUNCTION PANEL Routine 02/07/2025 6:34 AM CDT POCT GLUCOSE DEVICE Routine 02/06/2025 7 :50 PM CDT POCT GLUCOSE DEVICE Routine 02/06/2025 6 :40 PM CDT POCT GLUCOSE DEVICE Routine 02/06/2025 1 1:49 AM CDT ECG 12-LEAD Routine 02/06/2025 11:17 AM CDT POCT GLUCOSE DEVICE Routine 02/06/2025 7 :40 AM CDT POCT GLUCOSE DEVICE Routine 02/06/2025 4 :28 AM CDT POCT GLUCOSE DEVICE Routine 02/06/2025 1 2:08 AM CDT POCT GLUCOSE DEVICE Routine 02/05/2025 7 :24 PM CDT POCT GLUCOSE DEVICE Routine 02/05/2025 4 :31 PM CDT POCT GLUCOSE DEVICE Routine 02/05/2025 1 1:23 AM CDT POCT GLUCOSE DEVICE Routine 02/05/2025 7 :15 AM CDT EGFR Routine 02/05/2025 4:19 AM CDT DIFFERENTIAL AUTO Routine 02/05/2025 4:1 9 AM CDT CBC WITH AUTO DIFFERENTIAL Routine 02/05/2025 4:19 AM CDT BASIC METABOLIC PANEL Routine 02/05/2025 4:19 AM CDT HEMOGLOBIN A1C Routine 02/05/2025 4:19 AM CDT POCT GLUCOSE DEVICE Routine 02/04/2025 1 0:04 PM CDT RPR Routine 02/04/2025 9:51 PM CDT HEPATITIS C ANTIBODY Routine 02/04/2025 9:51 PM CDT HEPATITIS B SURFACE ANTIBODY (IMMUNE STATUS) Routine 02/04/2025 9:51 PM CDT HEPATITIS B CORE ANTIBODY, TOTAL Routine 02/04/2025 9:51 PM CDT HEPATITIS B SURFACE ANTIGEN Routine 02/04/2025 9:51 PM CDT HEPATITIS A ANTIBODY, TOTAL Routine 02/04/2025 9:51 PM CDT HIV 1/2 ANTIBODY PLUS P24 ANTIGEN Routine 02/04/2025 9:51 PM CDT POCT GLUCOSE DEVICE Routine 02/04/2025 5 :11 PM CDT ECG 12-LEAD STAT 02/04/2025 11:23 AM CDT URINALYSIS, MICROSCOPIC ONLY STAT 02/04/2025 9:04 AM CDT DRUGS OF ABUSE SCREEN, URINE WITHOUT CONFIRMATION STAT 02/04/2025 9:04 AM CDT URINALYSIS AND REFLEX TO MICROSCOPIC AND CULTURE STAT 02/04/2025 9:04 AM CDT MAGNESIUM STAT 02/04/2025 9:02 AM CDT EGFR STAT 02/04/2025 9:02 AM CDT DIFFERENTIAL AUTO STAT 02/04/2025 9:0 2 AM CDT ETHANOL STAT 02/04/2025 9:02 AM CDT THYROID FUNCTION CASCADE STAT 02/04/2025 9:02 AM CDT COMPREHENSIVE METABOLIC PANEL STAT 02/04/2025 9:02 AM CDT CBC WITH AUTO DIFFERENTIAL STAT 02/04/2025 9:02 AM CDT POCT GLUCOSE DEVICE Routine 11/19/2024 8 :25 AM CDT EGFR Routine 11/19/2024 4:00 AM CDT DIFFERENTIAL AUTO Routine 11/19/2024 4:0 0 AM CDT BASIC METABOLIC PANEL Routine 11/19/2024 4:00 AM CDT CBC WITH AUTO DIFFERENTIAL Routine 11/19/2024 4:00 AM CDT POCT GLUCOSE DEVICE Routine 11/18/2024 7 :11 PM CDT POCT GLUCOSE DEVICE Routine 11/18/2024 4 :59 PM CDT POCT GLUCOSE DEVICE Routine 11/18/2024 1 2:15 PM CDT POCT GLUCOSE DEVICE Routine 11/18/2024 8 :06 AM CDT EGFR Routine 11/18/2024 3:12 AM CDT DIFFERENTIAL AUTO Routine 11/18/2024 3:1 2 AM CDT BASIC METABOLIC PANEL Routine 11/18/2024 3:12 AM CDT CBC WITH AUTO DIFFERENTIAL Routine 11/18/2024 3:12 AM CDT POCT GLUCOSE DEVICE Routine 11/17/2024 8 :16 PM CDT IRON PROFILE W/ IBC STAT 11/17/2024 1 1:39 AM CDT VITAMIN B12 STAT 11/17/2024 11:39 AM CDT FERRITIN STAT 11/17/2024 11:39 AM CDT HEMOGLOBIN A1C STAT 11/17/2024 11:39 AM CDT EGFR STAT 11/17/2024 11:39 AM CDT URINALYSIS, MICROSCOPIC ONLY STAT 11/17/2024 11:39 AM CDT DIFFERENTIAL AUTO STAT 11/17/2024 11: 39 AM CDT DRUGS OF ABUSE SCREEN, URINE WITHOUT CONFIRMATION STAT 11/17/2024 11:39 AM CDT ETHANOL STAT 11/17/2024 11:39 AM CDT THYROID FUNCTION CASCADE STAT 11/17/2024 11:39 AM CDT COMPREHENSIVE METABOLIC PANEL STAT 11/17/2024 11:39 AM CDT CBC WITH AUTO DIFFERENTIAL STAT 11/17/2024 11:39 AM CDT URINE CULTURE STAT 11/17/2024 11:39 AM CDT URINALYSIS AND REFLEX TO MICROSCOPIC AND CULTURE STAT 11/17/2024 11:39 AM CDT TNI WITH LIPID PANEL Routine 08/21/2017 11:10 PM CDT from Last 3 Months or Most Recently Relevant to Health Maintenance Results * POCT glucose (02/08/2025 7:46 AM CDT) Glucose, POC 141 70 - 199 mg/dL Blood 02/08/2025 7:46 AM CDT 02/08/2025 7:46 AM CDT Toyin Ramirez MD LAB POCT ORDERABLES - DEVICE Fin al Result Performing Organization Address City/State/[facility] Co de Phone Number ZORAIDA [address] [facility] Department [place] [address] * eGFR (02/08/2025 7:33 AM CDT) eGFR 77 >=60 mL/min/1. 73 m2 Comment: Interpretive Data Reference Interval Normal >/= 90 mL/min/1.73m2 Mildly decreased* 60 - 89 mL/min/1.73m2 Mildly to moderately decreased 45 - 59 mL/min/1.73m2 Moderately to severely decreased 30 - 44 mL/min/1.73m2 Severely decreased 15 - 29 mL/min/1.73m2 Kidney Failure < 15 mL/min/1.73m2 *Relative to young adult level Estimated glomerular filtration rate is determined by the 2020 CKD-EPI equation recommended by the National Kidney Foundation (A Unifying Approach to GFR Estimation: Recommendations of the NKF-ASK Task Force on Reassessing the Inclusion of Race in Diagnosing Kidney Disease, JASN 2020). The CKD-EPI equation should not be used for patients with unstable renal function and has not been validated in children and those over 70. Current interpretive data was last reviewed 2021. Blood 02/08/2025 7:33 AM CDT 02/08/2025 7:59 AM CDT Toyin Ramirez MD LAB BLOOD ORDERABLES Final Resul t Performing Organization Address City/[facility]/ZIP Co de Phone Number [facility] [place] [address] * Renal function panel (02/08/2025 7:33 AM CDT) Pathologist [facility] Sodium 137 135 - 145 mmol/L Potassium, pl 4.0 3.3 - 4.9 mmol/L [facility] Chloride 101 97 - 110 mmol/L [facility] CO2 28 22 - 32 mmol/L [facility] Anion gap 8 2 - 15 mmol/L [facility] BUN 18 6 - 25 mg/dL [facility] Creatinine 1.14 0.80 - 1.30 mg/dL [facility] Glucose 109 70 - 199 mg/dL [facility] Comment: Interpretive Data Fasting glucose >/= 126 mg/dl is diagnostic for diabetes. Fasting is defined as no caloric intake for at least 8 hours. Fasting glucose between 100 mg/dl to 125 mg/dl is diagnostic of prediabetes. In a patient with classic symptoms of hyperglycemia or hyperglycemic crisis, a random glucose >/= 200 mg/dl is diagnostic for diabetes. In the absence of unequivocal hyperglycemia, results should be confirmed by repeat testing. The classification and Diagnosis of Diabetes Diabetes Care 2021; 46: S19-S40. Current interpretive data was last revised 2022. Calcium 9.6 8.5 - 10.3 mg/dL [facility] Phosphorus, pl 2.9 2.3 - 4.5 mg/dL [facility] Albumin 3.9 3.5 - 5.0 g/dL [facility] Blood 02/08/2025 7:33 AM CDT 02/08/2025 7:59 AM CDT Toyin Ramirez MD LAB BLOOD ORDERABLES Final Resul t Performing Organization Address City/[facility]/ZIP Co de Phone Number ZORAIDA [facility] [place] [address] * POCT glucose (02/07/2025 8:02 PM CDT) Glucose, POC 174 70 - 199 mg/dL Blood 02/07/2025 8:02 PM CDT 02/07/2025 8:02 PM CDT Toyin Ramirez MD LAB POCT ORDERABLES - DEVICE Fin al Result Performing Organization Address City/[facility] Co de Phone Number [address] [place] [address] * POCT glucose (02/07/2025 5:04 PM CDT) Glucose, POC 192 70 - 199 mg/dL Glucose comment 1 RN/MD Notified [facility] Blood 02/07/2025 5:04 PM CDT 02/07/2025 5:04 PM CDT Toyin Ramirez MD LAB POCT ORDERABLES - DEVICE Fin al Result Performing Organization Address [facility] Co de Phone Number [address] [place] [address] * POCT glucose (02/07/2025 12:42 PM CDT) Glucose, POC 110 70 - 199 mg/dL Blood 02/07/2025 12:4 2 PM CDT 02/07/2025 12:42 PM CDT Toyin Ramirez MD LAB POCT ORDERABLES - DEVICE Fin al Result Performing Organization Address City/[facility] Co de Phone Number [address] [place] [address] * POCT glucose (02/07/2025 8:43 AM CDT) Glucose, POC 118 70 - 199 mg/dL Blood 02/07/2025 8:43 AM CDT 02/07/2025 8:43 AM CDT Toyin Ramirez MD LAB POCT ORDERABLES - DEVICE Fin al Result Performing Organization Address City/[facility] Co de Phone Number [address] [place] [address] * eGFR (02/07/2025 6:34 AM CDT) eGFR 70 >=60 mL/min/1. 73 m2 Comment: Interpretive Data Reference Interval Normal >/= 90 mL/min/1.73m2 Mildly decreased* 60 - 89 mL/min/1.73m2 Mildly to moderately decreased 45 - 59 mL/min/1.73m2 Moderately to severely decreased 30 - 44 mL/min/1.73m2 Severely decreased 15 - 29 mL/min/1.73m2 Kidney Failure < 15 mL/min/1.73m2 *Relative to young adult level Estimated glomerular filtration rate is determined by the 2020 CKD-EPI equation recommended by the National Kidney Foundation (A Unifying Approach to GFR Estimation: Recommendations of the NKF-ASK Task Force on Reassessing the Inclusion of Race in Diagnosing Kidney Disease, JASN 2020). The CKD-EPI equation should not be used for patients with unstable renal function and has not been validated in children and those over 70. Current interpretive data was last reviewed 2021. Blood 02/07/2025 6:34 AM CDT 02/07/2025 7:43 AM CDT Toyin Ramirez MD LAB BLOOD ORDERABLES Final Resul t Performing Organization Address City/[facility] Co de Phone Number [address] [address] * Magnesium (02/07/2025 6:34 AM CDT) Pathologist [facility] Magnesium 2.0 1.4 - 2.5 mg/dL Blood 02/07/2025 6:34 AM CDT 02/07/2025 7:43 AM CDT Toyin Ramirez MD LAB BLOOD ORDERABLES Final Resul t Performing Organization Address [facility] Co de Phone Number [address] [place] [address] * Renal function panel (02/07/2025 6:34 AM CDT) Pathologist [facility] Sodium 140 135 - 145 mmol/L Potassium, pl 4.1 3.3 - 4.9 mmol/L [facility] Comment:Hemolyzed; Potassium value may be falsely elevated by as much as 1.0 mmol/L. Suggest redraw and reanalysis. Chloride 104 97 - 110 mmol/L [facility] CO2 27 22 - 32 mmol/L [facility] Anion gap 9 2 - 15 mmol/L [facility] BUN 24 6 - 25 mg/dL [facility] Creatinine 1.24 0.80 - 1.30 mg/dL [facility] Glucose 110 70 - 199 mg/dL [facility] Comment: Interpretive Data Fasting glucose >/= 126 mg/dl is diagnostic for diabetes. Fasting is defined as no caloric intake for at least 8 hours. Fasting glucose between 100 mg/dl to 125 mg/dl is diagnostic of prediabetes. In a patient with classic symptoms of hyperglycemia or hyperglycemic crisis, a random glucose >/= 200 mg/dl is diagnostic for diabetes. In the absence of unequivocal hyperglycemia, results should be confirmed by repeat testing. The classification and Diagnosis of Diabetes Diabetes Care 2021; 46: S19-S40. Current interpretive data was last revised 2022. Calcium 9.1 8.5 - 10.3 mg/dL [facility] Phosphorus, pl 2.7 2.3 - 4.5 mg/dL [facility] Albumin 3.6 3.5 - 5.0 g/dL [facility] Blood 02/07/2025 6:34 AM CDT 02/07/2025 7:43 AM CDT Toyin Ramirez MD LAB BLOOD ORDERABLES Final Resul t [facility] [address] [facility] Department [place] [address] * POCT glucose (02/06/2025 7:50 PM CDT) Pathologist [facility] Glucose, POC 121 70 - 199 mg/dL Blood 02/06/2025 7:50 PM CDT 02/06/2025 7:50 PM CDT Toyin Ramirez MD LAB POCT ORDERABLES - DEVICE Fin al Result Performing Organization Address [facility] Co de Phone Number [address] [place] [address] * POCT glucose (02/06/2025 6:40 PM CDT) Glucose, POC 87 70 - 199 mg/dL Blood 02/06/2025 6:40 PM CDT 02/06/2025 6:40 PM CDT Toyin Ramirez MD LAB POCT ORDERABLES - DEVICE Fin al Result Performing Organization Address [facility] de Phone Number [address] [place] [address] * POCT glucose (02/06/2025 11:49 AM CDT) Glucose, POC 94 70 - 199 mg/dL Blood 02/06/2025 11:4 9 AM CDT 02/06/2025 11:49 AM CDT Toyin Ramirez MD LAB POCT ORDERABLES - DEVICE Fin al Result Performing Organization Address [facility] de Phone Number [address] [place] [address] * ECG 12 lead (02/06/2025 11:17 AM CDT) Ventricular Rate EKG/Min 48 BPM [facility] Atrial Rate 48 BPM [facility] [place]-Interval (MSEC) 162 ms [facility] QRS-Interval (MSEC) 90 ms [facility] QT-Interval (MSEC) 430 ms [facility] QTc 384 ms [facility] P Riner 13 degrees [facility] R Riner 40 degrees [facility] T Riner 33 degrees [facility] Diagnosis Sinus bradycardia Otherwise normal ECG When compared with ECG of 04-FEB-2025 11:23, Vent. rate has decreased BY 34 BPM QT has shortened Confirmed by VIRGILIO OLIVEROS M.D. ([id number]) on 02/08/2025 5:44:04 PM [facility] 02/06/2025 11:1 7 AM CDT 02/08/2025 5:44 PM CDT Result Tanisha Ramirez MD ECG ORDERABLES Final Result Performing Organization Address [facility] de Phone Number [facility] * POCT glucose (02/06/2025 7:40 AM CDT) Glucose, POC 116 70 - 199 mg/dL Blood 02/06/2025 7:40 AM CDT 02/06/2025 7:40 AM CDT Result Tanisha Ramirez MD LAB POCT ORDERABLES - DEVICE Fin al Result Performing Organization Address [facility] de Phone Number [address] [place] [address] * POCT glucose (02/06/2025 4:28 AM CDT) Glucose, POC 166 70 - 199 mg/dL Glucose comment 1 RN/MD Notified [facility] Blood 02/06/2025 4:28 AM CDT 02/06/2025 4:28 AM CDT Result Tanisha Ramirez MD LAB POCT ORDERABLES - DEVICE Fin al Result Performing Organization Address [facility] de Phone Number [address] [place] [address] * POCT glucose (02/06/2025 12:08 AM CDT) Glucose, POC 113 70 - 199 mg/dL Glucose comment 1 RN/MD Notified [facility] Blood 02/06/2025 12:0 8 AM CDT 02/06/2025 12:08 AM CDT Result Tanisha Ramirez MD LAB POCT ORDERABLES - DEVICE Fin al Result Performing Organization Address [facility]/ZIP Co de Phone Number ZORAIDA [address] [place] [address] * POCT glucose (02/05/2025 7:24 PM CDT) Glucose, POC 108 70 - 199 mg/dL Glucose comment 1 RN/MD Notified [facility] Blood 02/05/2025 7:24 PM CDT 02/05/2025 7:24 PM CDT Toyin Ramirez MD LAB POCT ORDERABLES - DEVICE Fin al Result Performing Organization Address [facility] Co de Phone Number ZORAIDA [address] [place] [address] * POCT glucose (02/05/2025 4:31 PM CDT) Glucose, POC 101 70 - 199 mg/dL Glucose comment 1 Will Repeat Test [facility] Blood 02/05/2025 4:31 PM CDT 02/05/2025 4:31 PM CDT Toyin Ramirez MD LAB POCT ORDERABLES - DEVICE Fin al Result Performing Organization Address [facility]/ZIP Co de Phone Number [address] [place] [address] * POCT glucose (02/05/2025 11:23 AM CDT) Glucose, POC 109 70 - 199 mg/dL Glucose comment 1 Will Repeat Test ZORAIDA Blood 02/05/2025 11:2 3 AM CDT 02/05/2025 11:23 AM CDT us Toyin Ramirez MD LAB POCT ORDERABLES - DEVICE Fin al Result Performing Organization Address City/[facility]/ZIP Co de Phone Number [address] [place] [address] * POCT glucose (02/05/2025 7:15 AM CDT) [facility] Glucose, POC 100 70 - 199 mg/dL Glucose comment 1 Will Repeat Test ZOARIDA Blood 02/05/2025 7:15 AM CDT 02/05/2025 7:15 AM CDT Toyin Ramirez MD LAB POCT ORDERABLES - DEVICE Fin al Result Performing Organization Address [facility] Co de Phone Number [address] [place] [address] * eGFR (02/05/2025 4:19 AM CDT) [facility] eGFR 84 >=60 mL/min/1. 73 m2 Comment: Interpretive Data Reference Interval Normal >/= 90 mL/min/1.73m2 Mildly decreased* 60 - 89 mL/min/1.73m2 Mildly to moderately decreased 45 - 59 mL/min/1.73m2 Moderately to severely decreased 30 - 44 mL/min/1.73m2 Severely decreased 15 - 29 mL/min/1.73m2 Kidney Failure < 15 mL/min/1.73m2 *Relative to young adult level Estimated glomerular filtration rate is determined by the 2020 CKD-EPI equation recommended by the National Kidney Foundation (A Unifying Approach to GFR Estimation: Recommendations of the NKF-ASK Task Force on Reassessing the Inclusion of Race in Diagnosing Kidney Disease, JASN 2020). The CKD-EPI equation should not be used for patients with unstable renal function and has not been validated in children and those over 70. Current interpretive data was last reviewed 2021. Blood 02/05/2025 4:19 AM CDT 02/05/2025 4:54 AM CDT us Josephine Kwan NP LAB BLOOD ORDERABLES Final Re sult Performing Organization Address City/[facility]/ZIP Co de Phone Number [address] [place] [address] * Differential, auto (02/05/2025 4:19 AM CDT) [facility] Neutrophil abs 3.74 1.50 - 6.50 K/cumm Imm gran abs 0.01 0.00 - 0.10 K/cumm [facility] Lymphocyte abs 2.91 0.80 - 3.30 K/cumm [facility] Monocyte abs 0.58 0.20 - 0.80 K/cumm [facility] Eosinophil abs 0.17 0.00 - 0.50 K/cumm [facility] Basophil abs 0.03 0.00 - 0.10 K/cumm [facility] Neutrophil pct 50.3 % [facility] Comment: Interpretive Data Percent cell count reference ranges are not reported, since discordance with absolute values may lead to misinterpretation of CBC data. Current Interpretive Data was last revised on 2017. Imm gran pct 0.1 % [facility] Comment: Interpretive Data Percent cell count reference ranges are not reported, since discordance with absolute values may lead to misinterpretation of CBC data. Current Interpretive Data was last revised on 2017. Lymphocyte pct 39.1 % [facility] Comment: Interpretive Data Percent cell count reference ranges are not reported, since discordance with absolute values may lead to misinterpretation of CBC data. Current Interpretive Data was last revised on 2017. Monocyte pct 7.8 % [facility] Comment: Interpretive Data Percent cell count reference ranges are not reported, since discordance with absolute values may lead to misinterpretation of CBC data. Current Interpretive Data was last revised on 2017. Eosinophil pct 2.3 % [facility] Comment: Interpretive Data Percent cell count reference ranges are not reported, since discordance with absolute values may lead to misinterpretation of CBC data. Current Interpretive Data was last revised on 2017. Basophil pct 0.4 % [facility] Comment: Interpretive Data Percent cell count reference ranges are not reported, since discordance with absolute values may lead to misinterpretation of CBC data. Current Interpretive Data was last revised on 2017. Blood 02/05/2025 4:19 AM CDT 02/05/2025 4:53 AM CDT us Josephine Kwan NP LAB BLOOD ORDERABLES Final Re sult [address] [place] [address] * (ABNORMAL) CBC with auto differential (02/05/2025 4:19 AM CDT) [facility] WBC 7.44 3.80 - 9.90 K/cumm Hgb 11.3(L) 13.0 - 17.5 g/dL [facility] Hct 34.6(L) 38.9 - 50.3 % [facility] Plt 240 150 - 400 K/cumm [facility] MPV 9.6 9.1 - 12.3 fL [facility] RBC 3.77(L) 4.30 - 5.80 M/cumm [facility] MCV 91.8 81.3 - 96.4 fL [facility] MCH 30.0 27.1 - 33.3 pg [facility] MCHC 32.7 32.3 - 35.7 g/dL [facility] RDW CV 16.1(H) 11.1 - 14.9 % [facility] RDW SD 54.7(H) 35.7 - 48.1 fL [facility] NRBC abs 0.00 0.00 - 0.01 K/cumm [facility] Blood 02/05/2025 4:19 AM CDT 02/05/2025 4:53 AM CDT Josephine Kwan NP LAB BLOOD ORDERABLES Final Re sult [address] [address] * (ABNORMAL) Hemoglobin A1c (02/05/2025 4:19 AM CDT) [facility] Hgb A1C 6.0(H) 4.0 - 5.6 % Estimated Average Glucose 126 mg/dL [facility] Comment: The ADA recommends reporting an estimated Average Glucose (eAG) with all Hemoglobin A1c results using the equation derived from a study of 507 normal and diabetic adults. Minority populations were underrepresented and children were not included. (Diabetes Care 31:8802-3553, 2008). The eAG is not equivalent to a fasting glucose. Blood 02/05/2025 4:19 AM CDT 02/05/2025 4:53 AM CDT Josephine Kwan NP LAB BLOOD ORDERABLES Final Re sult Performing Organization Address [facility] Co de Phone Number ZORAIDA [address] [address] * Basic metabolic panel (02/05/2025 4:19 AM CDT) [facility] Sodium 140 135 - 145 mmol/L Potassium, pl 3.7 3.3 - 4.9 mmol/L [facility] Chloride 106 97 - 110 mmol/L [facility] CO2 26 22 - 32 mmol/L [facility] Anion gap 8 2 - 15 mmol/L [facility] BUN 22 6 - 25 mg/dL [facility] Creatinine 1.07 0.80 - 1.30 mg/dL [facility] Glucose 125 70 - 199 mg/dL [facility] Comment: Interpretive Data Fasting glucose >/= 126 mg/dl is diagnostic for diabetes. Fasting is defined as no caloric intake for at least 8 hours. Fasting glucose between 100 mg/dl to 125 mg/dl is diagnostic of prediabetes. In a patient with classic symptoms of hyperglycemia or hyperglycemic crisis, a random glucose >/= 200 mg/dl is diagnostic for diabetes. In the absence of unequivocal hyperglycemia, results should be confirmed by repeat testing. The classification and Diagnosis of Diabetes Diabetes Care 2021; 46: S19-S40. Current interpretive data was last revised 2022. Calcium 8.6 8.5 - 10.3 mg/dL [facility] Blood 02/05/2025 4:19 AM CDT 02/05/2025 4:54 AM CDT Josephine Kwan NP LAB BLOOD ORDERABLES Final Re sult Performing Organization Address City/[facility]/ZIP Co de Phone Number ZORAIDA [address] [place] [address] * POCT glucose (02/04/2025 10:04 PM CDT) Glucose, POC 166 70 - 199 mg/dL Glucose comment 1 RN/ Notified [facility] Blood 02/04/2025 10:0 4 PM CDT 02/04/2025 10:04 PM CDT Result [facility] Toyin Ramirez MD LAB POCT ORDERABLES - DEVICE Fin al Result Performing Organization Address [facility] Co de Phone Number [address] [address] * HIV 1/2 Antibody plus p24 Antigen Blood (02/04/2025 9:51 PM CDT) HIV 1/2 ab + p24 ag Nonreactive Nonreactive Comment:Nonreactive for HIV- 1 antigen and HIV-1/HIV-2 antibodies. No laboratory evidence of HIV infection. If acute HIV infection is suspected, consider testing for HIV-1 RNA. Current interpretive data was last revised on 22. Blood 02/04/2025 9:51 PM CDT 02/04/2025 10:03 PM CDT Josephine Kwan NP LAB MICROBIOLOGY - GENERAL OR DERABLES Final Result Performing Organization Address [facility] Co de Phone Number [address] [address] * Hepatitis C antibody Blood (02/04/2025 9:51 PM CDT) Hep C Ab Nonreactive Nonreactive Comment: Antibodies to HCV not detected. Does NOT exclude the possibility of recent exposure to HCV. Current interpretive data was last revised on 22 Interpretive Data Nonreactive: Antibodies to HCV not detected. Does NOT exclude the possibility of recent exposure to HCV. Equivocal: Equivocal for HCV antibodies. Supplemental molecular testing will be automatically performed to determine infection status in accordance with current CDC screening recommendations. Reactive: Positive for HCV antibodies. This may represent current or past HCV infection. Supplemental molecular testing will be automatically performed to determine current infection status in accordance with current CDC screening recommendations. Interpretive data was last revised on 2019. Blood 02/04/2025 9:51 PM CDT 02/04/2025 10:03 PM CDT Josephine Kwan NP LAB MICROBIOLOGY - GENERAL OR DERABLES Final Result Performing Organization Address [facility] Co de Phone Number ZORAIDA [address] [place] [address] * Hepatitis A antibody, total Blood (02/04/2025 9:51 PM CDT) Pathologist [facility] Hep A total Nonreactive Nonreactive Comment:Testing performed by : [facility], [address] [place] [address]., [id number] Blood 02/04/2025 9:51 PM CDT 02/04/2025 11:46 PM CDT Josephine Kwan NP LAB MICROBIOLOGY - GENERAL OR DERABLES Final Result Performing Organization Address [facility] Co de Phone Number [address] [address] * Hepatitis B core antibody, total Blood (02/04/2025 9:51 PM CDT) [facility] Hep B core IgG/IgM Nonreactive Nonreactive Comment:Testing performed by : [facility], [address] [place] [address]., [id number] Blood 02/04/2025 9:51 PM CDT 02/04/2025 11:46 PM CDT Josephine Kwan NP LAB MICROBIOLOGY - GENERAL OR DERABLES Final Result Performing Organization Address [facility] Co de Phone Number [address] [place] [address] * RPR Blood (02/04/2025 9:51 PM CDT) [facility] RPR Nonreactive Nonreactive Comment:Testing performed by : [facility], [address] [place] [address], [place]., [id number] Blood 02/04/2025 9:51 PM CDT 02/04/2025 11:46 PM CDT Josephine Kwan NP LAB MICROBIOLOGY - GENERAL OR DERABLES Final Result Performing Organization Address [facility] Co de Phone Number [address] [place] [address] * Hepatitis B surface antibody (immune status) Blood (02/04/2025 9:51 PM CDT) HBsAb (immune status) Nonreactive Comment: Interpretive Data Nonreactive: This result is consistent with a lack of immunity to Hepatitis B Virus when used in the setting of routine screening. Equivocal: The immune status of the individual should be further assessed, if appropriate, after consideration of clinical status, risk factors, and additional diagnostic information. Reactive: This result is consistent with immunity to Hepatitis B Virus when used in the setting of routine screening. Current interpretive data was last revised on 19. Blood 02/04/2025 9:51 PM CDT 02/04/2025 10:03 PM CDT Josephine Kwan NP LAB MICROBIOLOGY - GENERAL OR DERABLES Final Result Performing Organization Address [facility] Co de Phone Number [address] [place] [address] * Hepatitis B Surface Antigen Blood (02/04/2025 9:51 PM CDT) HepBsAg Nonreactive Nonreactive Blood 02/04/2025 9:51 PM CDT 02/04/2025 10:03 PM CDT Josephine Kwan NP LAB MICROBIOLOGY - GENERAL OR DERABLES Final Result Performing Organization Address [facility] de Phone Number [address] [place] [address] * POCT glucose (02/04/2025 5:11 PM CDT) Glucose, POC 101 70 - 199 mg/dL Blood 02/04/2025 5:1 1 PM CDT 02/04/2025 5:11 PM CDT Toyin Ramirez MD LAB POCT ORDERABLES - DEVICE Fin al Result Performing Organization Address [facility] de Phone Number [facility] [address] [facility] Department [place] [address] * ECG 12 lead (02/04/2025 11:23 AM CDT) Pathologist [facility] Ventricular Rate EKG/Min 82 BPM [facility] Atrial Rate 82 BPM [facility] [place]-Interval (MSEC) 168 ms [facility] QRS-Interval (MSEC) 92 ms [facility] QT-Interval (MSEC) 388 ms [facility] QTc 453 ms [facility] P Riner 48 degrees [facility] R Riner 37 degrees [facility] T Riner 40 degrees [facility] Diagnosis Normal sinus rhythm Normal ECG When compared with ECG of 12-SEP-2021 23:16, No significant change was found Confirmed by VIRGILIO OLIVEROS M.D. ([id number]) on 02/05/2025 7:05:45 PM [facility] 02/04/2025 11:2 3 AM CDT 02/05/2025 7:05 PM CDT Hilton Garnica DO ECG ORDERABLES Final Resul t Performing Organization Address [facility] de Phone Number [facility] * (ABNORMAL) Urinalysis reflex to microscopic and culture Urine (02/04/2025 9:04 AM CDT) Color, ur Yellow Yellow Clarity, ur Clear Clear ZORAIDA Specific gravity, ur 1.024 1.003 - 1.030 ZORAIDA pH, urine 6.0 ZORAIDA Comment: Interpretive Data U rine pH is affected by diet, medications, systemic acid-base disturbances, and renal tubular function. pH may affect urinary stone formation. For example, urine pH below 6.0 may help reduce the tendency for calcium phosphate stones and pH greater than 6.0 may reduce the tendency for uric acid stone formation. Source: [facility] Current Interpretive Data was last revised on 2017 Protein, ur ql Negative Negative [facility] Glucose, ur ql Negative Negative [facility] Ketones, ur Negative Negative [facility] Bilirubin, ur Negative Negative [facility] Blood, ur 2+(A) Negative [facility] Urobilinogen, ur <2.0 <2.0 mg/dL [facility] Nitrite, ur Negative Negative [facility] Leukocyte esterase, ur Negative Negative [facility] UA reflex comment Reflex to microscopic UA will be performed. [facility] Urine 02/04/2025 9:04 AM CDT 02/04/2025 9:06 AM CDT Hilton Garnica DO LAB MICROBIOLOGY - GENERAL ORDERABLES Final Result [facility] [address] [facility] Department [place] [address] * (ABNORMAL) Drugs of Abuse Screen, Urine without Confirmation (02/04/2025 9:04 AM CDT) Amphetamine, ur Screen Positive, presumptive (A) CutOff 500ng/mL Comment: Interpretive Data - Amphetamines: Samples containing greater than 500 ng/mL d-methamphetamine or other cross-reacting amphetamine compounds are reported as positive. Amphetamine immunoassays are subject to significant false positive rates due to cross-reactivity of non-amphetamine drugs. Confirmatory testing required for definitive results. Current Interpretive Data was last reviewed 2022. Testing performed by: [address] [address] Barbiturates, ur Not Detected CutOff 200ng/mL [facility] Comment: Interpretive Data - Barbiturates: Samples containing greater than 200 ng/mL secobarbital or other cross-reacting barbiturate compounds are reported as positive. False positive and false negative results are possible. Confirmatory testing required for definitive results. Current Interpretive Data was last reviewed 2022. Testing performed by: [address] [address] Benzodiazepines, ur Not Detected CutOff 100ng/mL [facility] Comment: Interpretive Data - Benzodiazepines: Samples containing greater than 100 ng/mL nordiazepam or other cross-reacting compounds are reported as positive. False positive and false negative results are possible. Confirmatory testing required for definitive results. Current Interpretive Data was last reviewed 2022. Testing performed by: [address] [address] Cannabinoids, ur Screen Positive, presumptive (A) CutOff 50 ng/mL [facility] Comment: Interpretive Data - Cannabinoids: Samples containing greater than 50 ng/mL delta-9 THC -COOH or other cross- reacting compounds are reported as positive. False positive and false negative results are possible. Confirmatory testing required for definitive results. Current Interpretive Data was last reviewed 2022. Testing performed by: [address] [address] Cocaine, ur Screen Positive, presumptive (A) CutOff 150ng/mL [facility] Comment: Interpretive Data - Cocaine: Samples containing greater than 150 ng/mL benzoylecgonine or other cross- reacting compounds are reported as positive. False positive and false negative results are possible. Confirmatory testing required for definitive results. Current Interpretive Data was last reviewed 2022. Testing performed by: [address] [address] Fentanyl, Ur Screen Positive, presumptive (A) CutOff 5 ng/mL [facility] Comment: Interpretive Data - Fentanyl: Samples containing greater than 1 ng/mL fentanyl or other cross-reacting fentanyl compounds are reported as positive. False positive and false negative results are possible. Confirmatory testing required for definitive results. Current Interpretive Data was last reviewed 2022. Testing performed by: [address] [address] Methadone, ur Not Detected CutOff 300ng/mL [facility] Comment: Interpretive Data - Methadone: Samples containing greater than 300 ng/mL d,l-methadone or other cross-reacting compounds are reported as positive. False positive and false negative results are possible. Confirmatory testing required for definitive results. Current Interpretive Data was last reviewed 2022. Testing performed by: [address] [address] Opiates, ur Screen Positive, presumptive (A) CutOff 300ng/mL ZORAIDA Comment: Interpretive Data - Opiates: Samples containing greater than 300 ng/mL morphine or other cross-reacting compounds are reported as positive. False positive and false negative results are possible. Confirmatory testing required for definitive results. Current Interpretive Data was last reviewed 2022. Testing performed by: [address] [address] Oxycodone, ur Not Detected CutOff 100ng/mL ZORAIDA Comment: Interpretive Data - Oxycodone: Samples containing greater than 100 ng/mL oxycodone or other cross-reacting compounds are reported as positive. False positive and false negative results are possible. Confirmatory testing required for definitive results. Current Interpretive Data was last reviewed 2022. Testing performed by: [address] [address] Phencyclidine, ur Not Detected CutOff 25 ng/mL [facility]IDA Comment: Interpretive Data - Phencyclidine: Samples containing greater than 25 ng/mL phencyclidine or other cross-reacting compounds are reported as positive. False positive and false negative results are possible. Confirmatory testing required for definitive results. Current Interpretive Data was last reviewed 2022. Testing performed by: [address] [address] Urine 02/04/2025 9:04 AM CDT 02/04/2025 9:06 AM CDT Narrative ZORAIDA - 02/04/2025 1:10 PM CDT Drug of Abuse screening is performed by immunoassay for medical purposes only. This is not to be used for Pain Management purposes. Hilton Garnica DO LAB URINE ORDERABLES Final Result [facility] [address] [facility] Department [place] [address] * (ABNORMAL) Urinalysis, microscopic only (02/04/2025 9:04 AM CDT) WBC, ur 0-5 0 - 5 /HPF RBC, ur 11-20(A) 0 - 2 /HPF [facility] Epithelial cells, squamous, ur 1-5 0 - 5 /HPF [facility] Mucous, ur Present(A) [facility] Culture Reflex Comment Reflex conditions for urine culture (WBC >10) not met. [facility] Urine 02/04/2025 9:04 AM CDT 02/04/2025 9:06 AM CDT Hilton [facility] LAB URINE ORDERABLES Final Result Performing Organization Address [facility] de Phone Number [address] [place] [address] * eGFR (02/04/2025 9:02 AM CDT) eGFR 81 >=60 mL/min/1. 73 m2 Comment: Interpretive Data Reference Interval Normal >/= 90 mL/min/1.73m2 Mildly decreased* 60 - 89 mL/min/1.73m2 Mildly to moderately decreased 45 - 59 mL/min/1.73m2 Moderately to severely decreased 30 - 44 mL/min/1.73m2 Severely decreased 15 - 29 mL/min/1.73m2 Kidney Failure < 15 mL/min/1.73m2 *Relative to young adult level Estimated glomerular filtration rate is determined by the 2020 CKD-EPI equation recommended by the National Kidney Foundation (A Unifying Approach to GFR Estimation: Recommendations of the NKF-ASK Task Force on Reassessing the Inclusion of Race in Diagnosing Kidney Disease, JASN 2020). The CKD-EPI equation should not be used for patients with unstable renal function and has not been validated in children and those over 70. Current interpretive data was last reviewed 2021. Blood 02/04/2025 9:02 AM CDT 02/04/2025 9:07 AM CDT Hilton Garnica LAB BLOOD ORDERABLES Final Result Performing Organization Address [facility] Co de Phone Number [address] [place] [address] * Differential, auto (02/04/2025 9:02 AM CDT) Pathologist [facility] Neutrophil abs 5.81 1.50 - 6.50 K/cumm Imm gran abs 0.01 0.00 - 0.10 K/cumm [facility] Lymphocyte abs 2.43 0.80 - 3.30 K/cumm [facility] Monocyte abs 0.73 0.20 - 0.80 K/cumm [facility] Eosinophil abs 0.21 0.00 - 0.50 K/cumm [facility] Basophil abs 0.03 0.00 - 0.10 K/cumm [facility] Neutrophil pct 63.0 % [facility] Comment: Interpretive Data Percent cell count reference ranges are not reported, since discordance with absolute values may lead to misinterpretation of CBC data. Current Interpretive Data was last revised on 2017. Imm gran pct 0.1 % [facility] Comment: Interpretive Data Percent cell count reference ranges are not reported, since discordance with absolute values may lead to misinterpretation of CBC data. Current Interpretive Data was last revised on 2017. Lymphocyte pct 26.4 % [facility] Comment: Interpretive Data Percent cell count reference ranges are not reported, since discordance with absolute values may lead to misinterpretation of CBC data. Current Interpretive Data was last revised on 2017. Monocyte pct 7.9 % [facility] Comment: Interpretive Data Percent cell count reference ranges are not reported, since discordance with absolute values may lead to misinterpretation of CBC data. Current Interpretive Data was last revised on 2017. Eosinophil pct 2.3 % [facility] Comment: Interpretive Data Percent cell count reference ranges are not reported, since discordance with absolute values may lead to misinterpretation of CBC data. Current Interpretive Data was last revised on 2017. Basophil pct 0.3 % [facility] Comment: Interpretive Data Percent cell count reference ranges are not reported, since discordance with absolute values may lead to misinterpretation of CBC data. Current Interpretive Data was last revised on 2017. Blood 02/04/2025 9:02 AM CDT 02/04/2025 9:07 AM CDT Hilton Garnica DO LAB BLOOD ORDERABLES Final Result Performing Organization Address [facility] Co de Phone Number [place] [id number] [facility] [place] [address] * Thyroid Function [place] (02/04/2025 9:02 AM CDT) [facility] TSH 1.31 0.30 - 4.20 mcIUnit/mL Blood 02/04/2025 9:02 AM CDT 02/04/2025 9:07 AM CDT Hilton [facility] LAB BLOOD ORDERABLES Final Result Performing Organization Address [facility] de Phone Number [address] [address] * (ABNORMAL) CBC with auto differential (02/04/2025 9:02 AM CDT) [facility] WBC 9.22 3.80 - 9.90 K/cumm Hgb 12.4(L) 13.0 - 17.5 g/dL [facility] Hct 36.7(L) 38.9 - 50.3 % [facility] Plt 265 150 - 400 K/cumm [facility] MPV 9.2 9.1 - 12.3 fL [facility] RBC 4.06(L) 4.30 - 5.80 M/cumm [facility] MCV 90.4 81.3 - 96.4 fL [facility] MCH 30.5 27.1 - 33.3 pg [facility] MCHC 33.8 32.3 - 35.7 g/dL [facility] RDW CV 15.9(H) 11.1 - 14.9 % [facility] RDW SD 53.0(H) 35.7 - 48.1 fL [facility] NRBC abs 0.00 0.00 - 0.01 K/cumm [facility] Blood Venous blood specimen / Unknown 02/04/2025 9:02 AM CDT 02/04/2025 9:07 AM CDT us Hilton [facility] LAB BLOOD ORDERABLES Final Result Performing Organization Address [facility] Co de Phone Number [address] [address] * Magnesium (02/04/2025 9:02 AM CDT) [facility] Magnesium 2.0 1.4 - 2.5 mg/dL Blood 02/04/2025 9:02 AM CDT 02/04/2025 9:07 AM CDT [facility] Final Result Performing Organization Address [facility] Co de Phone Number [address] [address] * Ethanol (02/04/2025 9:02 AM CDT) [facility] Ethanol <10 <=10 mg/dL Comment: Interpretive Data Legal limit of intoxication > or = 80 mg/dL Levels > or = 400 mg/dL are potentially TOXIC. Current interpretive data was last revised on 2018. Blood 02/04/2025 9:02 AM CDT 02/04/2025 9:07 AM CDT Hilton Garnica LAB BLOOD ORDERABLES Final Result Performing Organization Address [facility] Co de Phone Number [address] [place] [address] * Comprehensive metabolic panel (02/04/2025 9:02 AM CDT) [facility] Sodium 139 135 - 145 mmol/L Potassium, pl 3.7 3.3 - 4.9 mmol/L [facility] Chloride 103 97 - 110 mmol/L [facility] CO2 26 22 - 32 mmol/L [facility] Anion gap 10 2 - 15 mmol/L [facility] BUN 19 6 - 25 mg/dL [facility] Creatinine 1.10 0.80 - 1.30 mg/dL [facility] Glucose 121 70 - 199 mg/dL [facility] Comment: Interpretive Data Fasting glucose >/= 126 mg/dl is diagnostic for diabetes. Fasting is defined as no caloric intake for at least 8 hours. Fasting glucose between 100 mg/dl to 125 mg/dl is diagnostic of prediabetes. In a patient with classic symptoms of hyperglycemia or hyperglycemic crisis, a random glucose >/= 200 mg/dl is diagnostic for diabetes. In the absence of unequivocal hyperglycemia, results should be confirmed by repeat testing. The classification and Diagnosis of Diabetes Diabetes Care 2021; 46: S19-S40. Current interpretive data was last revised 2022. Calcium 9.2 8.5 - 10.3 mg/dL [facility] Bilirubin, total 0.6 0.1 - 1.2 mg/dL [facility] Protein, pl 7.0 6.5 - 8.5 g/dL [facility] Albumin 4.1 3.5 - 5.0 g/dL [facility] Alk phos 119 40 - 130 Units/L [facility] ALT 18 7 - 55 Units/L [facility] AST 25 10 - 50 Units/L [facility] Blood 02/04/2025 9:02 AM CDT 02/04/2025 9:07 AM CDT Hilton Garnica DO LAB BLOOD ORDERABLES Final Result Performing Organization Address [facility] Co de Phone Number [address] [place] [address] * POCT glucose (11/19/2024 8:25 AM CDT) [facility] Glucose, POC 101 70 - 199 mg/dL Blood 11/19/2024 8:25 AM CDT 11/19/2024 8:25 AM CDT Toyin Ramirez MD LAB POCT ORDERABLES - DEVICE Fin al Result Performing Organization Address [facility] Co de Phone Number [address] [place] [address] * eGFR (11/19/2024 4:00 AM CDT) Pathologist [facility] eGFR 82 >=60 mL/min/1. 73 m2 Comment: Interpretive Data Reference Interval Normal >/= 90 mL/min/1.73m2 Mildly decreased* 60 - 89 mL/min/1.73m2 Mildly to moderately decreased 45 - 59 mL/min/1.73m2 Moderately to severely decreased 30 - 44 mL/min/1.73m2 Severely decreased 15 - 29 mL/min/1.73m2 Kidney Failure < 15 mL/min/1.73m2 *Relative to young adult level Estimated glomerular filtration rate is determined by the 2020 CKD-EPI equation recommended by the National Kidney Foundation (A Unifying Approach to GFR Estimation: Recommendations of the NKF-ASK Task Force on Reassessing the Inclusion of Race in Diagnosing Kidney Disease, JASN 2020). The CKD-EPI equation should not be used for patients with unstable renal function and has not been validated in children and those over 70. Current interpretive data was last reviewed 2021. Blood 11/19/2024 4:00 AM CDT 11/19/2024 4:21 AM CDT Kamari Quiroz DIRECTOR [employer] LAB BLOOD ORDERABLES Final Result [facility] [address] [facility] Department [place] [address] * Differential, auto (11/19/2024 4:00 AM CDT) Pathologist [facility] Neutrophil abs 5.05 1.50 - 6.50 K/cumm Imm gran abs 0.01 0.00 - 0.10 K/cumm [facility] Lymphocyte abs 2.92 0.80 - 3.30 K/cumm [facility] Monocyte abs 0.65 0.20 - 0.80 K/cumm [facility] Eosinophil abs 0.19 0.00 - 0.50 K/cumm [facility] Basophil abs 0.03 0.00 - 0.10 K/cumm [facility] Neutrophil pct 57.2 % [facility] Comment: Interpretive Data Percent cell count reference ranges are not reported, since discordance with absolute values may lead to misinterpretation of CBC data. Current Interpretive Data was last revised on 2017. Imm gran pct 0.1 % [facility] Comment: Interpretive Data Percent cell count reference ranges are not reported, since discordance with absolute values may lead to misinterpretation of CBC data. Current Interpretive Data was last revised on 2017. Lymphocyte pct 33.0 % [facility] Comment: Interpretive Data Percent cell count reference ranges are not reported, since discordance with absolute values may lead to misinterpretation of CBC data. Current Interpretive Data was last revised on 2017. Monocyte pct 7.3 % [facility] Comment: Interpretive Data Percent cell count reference ranges are not reported, since discordance with absolute values may lead to misinterpretation of CBC data. Current Interpretive Data was last revised on 2017. Eosinophil pct 2.1 % [facility] Comment: Interpretive Data Percent cell count reference ranges are not reported, since discordance with absolute values may lead to misinterpretation of CBC data. Current Interpretive Data was last revised on 2017. Basophil pct 0.3 % [facility] Comment: Interpretive Data Percent cell count reference ranges are not reported, since discordance with absolute values may lead to misinterpretation of CBC data. Current Interpretive Data was last revised on 2017. Blood 11/19/2024 4:00 AM CDT 11/19/2024 4:21 AM CDT Kamari Quiroz NP LAB BLOOD ORDERABLES Final Result [facility] [address] [facility] Department [place] [address] * (ABNORMAL) CBC with auto differential (11/19/2024 4:00 AM CDT) WBC 8.85 3.80 - 9.90 K/cumm Hgb 11.8(L) 13.0 - 17.5 g/dL [facility] Hct 35.1(L) 38.9 - 50.3 % [facility] Plt 386 150 - 400 K/cumm [facility] MPV 9.2 9.1 - 12.3 fL [facility] RBC 3.96(L) 4.30 - 5.80 M/cumm [facility] MCV 88.6 81.3 - 96.4 fL [facility] MCH 29.8 27.1 - 33.3 pg [facility] MCHC 33.6 32.3 - 35.7 g/dL [facility] RDW CV 13.3 11.1 - 14.9 % [facility] RDW SD 43.6 35.7 - 48.1 fL [facility] NRBC abs 0.00 0.00 - 0.01 K/cumm [facility] Blood 11/19/2024 4:00 AM CDT 11/19/2024 4:21 AM CDT Kamari Quiroz NP LAB BLOOD ORDERABLES Final Result [facility] [address] [facility] Department [place] [address] * Basic metabolic panel (11/19/2024 4:00 AM CDT) Sodium 138 135 - 145 mmol/L Potassium, pl 3.5 3.3 - 4.9 mmol/L [facility] Chloride 104 97 - 110 mmol/L [facility] CO2 27 22 - 32 mmol/L [facility] Anion gap 7 2 - 15 mmol/L [facility] BUN 13 6 - 25 mg/dL [facility] Creatinine 1.09 0.80 - 1.30 mg/dL [facility] Glucose 102 70 - 199 mg/dL [facility] Comment: Interpretive Data Fasting glucose >/= 126 mg/dl is diagnostic for diabetes. Fasting is defined as no caloric intake for at least 8 hours. Fasting glucose between 100 mg/dl to 125 mg/dl is diagnostic of prediabetes. In a patient with classic symptoms of hyperglycemia or hyperglycemic crisis, a random glucose >/= 200 mg/dl is diagnostic for diabetes. In the absence of unequivocal hyperglycemia, results should be confirmed by repeat testing. The classification and Diagnosis of Diabetes Diabetes Care 202; 46: S19-S40. Current interpretive data was last revised 2022. Calcium 9.0 8.5 - 10.3 mg/dL [facility] Blood 11/19/2024 4:00 AM CDT 11/19/2024 4:21 AM CDT Kamari Quiroz DIRECTOR [employer] LAB BLOOD ORDERABLES Final Result Performing Organization Address City/[facility]/ZIP Co de Phone Number [address] [place] [address] * POCT glucose (11/18/2024 7:11 PM CDT) Glucose, POC 116 70 - 199 mg/dL Blood 11/18/2024 7:11 PM CDT 11/18/2024 7:11 PM CDT Toyin Ramirez MD LAB POCT ORDERABLES - DEVICE Fin al Result Performing Organization Address [facility] Co de Phone Number [address] [place] [address] * POCT glucose (11/18/2024 4:59 PM CDT) Glucose, POC 122 70 - 199 mg/dL Blood 11/18/2024 4:59 PM CDT 11/18/2024 4:59 PM CDT Toyin Ramirez MD LAB POCT ORDERABLES - DEVICE Fin al Result Performing Organization Address [facility] Co de Phone Number [address] [place] [address] * POCT glucose (11/18/2024 12:15 PM CDT) Glucose, POC 149 70 - 199 mg/dL Blood 11/18/2024 12:1 5 PM CDT 11/18/2024 12:15 PM CDT Toyin Ramirez MD LAB POCT ORDERABLES - DEVICE Fin al Result Performing Organization Address [facility] Co de Phone Number [address] [place] [address] * POCT glucose (11/18/2024 8:06 AM CDT) Glucose, POC 111 70 - 199 mg/dL Blood 11/18/2024 8:06 AM CDT 11/18/2024 8:06 AM CDT Toyin Ramirez MD LAB POCT ORDERABLES - DEVICE Fin al Result Performing Organization Address [facility] Co de Phone Number [place] [address] [place] [address] * eGFR (11/18/2024 3:12 AM CDT) [facility] eGFR >90 >=60 mL/min/1. 73 m2 Comment: Interpretive Data Reference Interval Normal >/= 90 mL/min/1.73m2 Mildly decreased* 60 - 89 mL/min/1.73m2 Mildly to moderately decreased 45 - 59 mL/min/1.73m2 Moderately to severely decreased 30 - 44 mL/min/1.73m2 Severely decreased 15 - 29 mL/min/1.73m2 Kidney Failure < 15 mL/min/1.73m2 *Relative to young adult level Estimated glomerular filtration rate is determined by the 2020 CKD-EPI equation recommended by the National Kidney Foundation (A Unifying Approach to GFR Estimation: Recommendations of the NKF-ASK Task Force on Reassessing the Inclusion of Race in Diagnosing Kidney Disease, JASN 2020). The CKD-EPI equation should not be used for patients with unstable renal function and has not been validated in children and those over 70. Current interpretive data was last reviewed 2021. Blood 11/18/2024 3:12 AM CDT 11/18/2024 3:47 AM CDT Kamari Quiroz NP LAB BLOOD ORDERABLES Final Result Performing Organization Address [facility]/ZIP Co de Phone Number [place] [address] [place] [address] * Differential, auto (11/18/2024 3:12 AM CDT) [facility] Neutrophil abs 6.29 1.50 - 6.50 K/cumm Imm gran abs 0.02 0.00 - 0.10 K/cumm [facility] Lymphocyte abs 2.83 0.80 - 3.30 K/cumm [facility] Monocyte abs 0.70 0.20 - 0.80 K/cumm [facility] Eosinophil abs 0.29 0.00 - 0.50 K/cumm [facility] Basophil abs 0.04 0.00 - 0.10 K/cumm [facility] Neutrophil pct 61.8 % [facility] Comment: Interpretive Data Percent cell count reference ranges are not reported, since discordance with absolute values may lead to misinterpretation of CBC data. Current Interpretive Data was last revised on 2017. Imm gran pct 0.2 % [facility] Comment: Interpretive Data Percent cell count reference ranges are not reported, since discordance with absolute values may lead to misinterpretation of CBC data. Current Interpretive Data was last revised on 2017. Lymphocyte pct 27.8 % [facility] Comment: Interpretive Data Percent cell count reference ranges are not reported, since discordance with absolute values may lead to misinterpretation of CBC data. Current Interpretive Data was last revised on 2017. Monocyte pct 6.9 % [facility] Comment: Interpretive Data Percent cell count reference ranges are not reported, since discordance with absolute values may lead to misinterpretation of CBC data. Current Interpretive Data was last revised on 2017. Eosinophil pct 2.9 % [facility] Comment: Interpretive Data Percent cell count reference ranges are not reported, since discordance with absolute values may lead to misinterpretation of CBC data. Current Interpretive Data was last revised on 2017. Basophil pct 0.4 % [facility] Comment: Interpretive Data Percent cell count reference ranges are not reported, since discordance with absolute values may lead to misinterpretation of CBC data. Current Interpretive Data was last revised on 2017. Blood 11/18/2024 3:12 AM CDT 11/18/2024 3:47 AM CDT us Kamari Quiroz NP LAB BLOOD ORDERABLES Final Result [facility] [address] [facility] Department [place] [address] * (ABNORMAL) CBC with auto differential (11/18/2024 3:12 AM CDT) [facility] WBC 10.17(H) 3.80 - 9.90 K/cumm Hgb 11.7(L) 13.0 - 17.5 g/dL [facility] Hct 35.2(L) 38.9 - 50.3 % [facility] Plt 404(H) 150 - 400 K/cumm [facility] MPV 9.4 9.1 - 12.3 fL [facility] RBC 3.95(L) 4.30 - 5.80 M/cumm [facility] MCV 89.1 81.3 - 96.4 fL [facility] MCH 29.6 27.1 - 33.3 pg [facility] MCHC 33.2 32.3 - 35.7 g/dL [facility] RDW CV 13.3 11.1 - 14.9 % [facility] RDW SD 43.8 35.7 - 48.1 fL [facility] NRBC abs 0.00 0.00 - 0.01 K/cumm [facility] Blood 11/18/2024 3:12 AM CDT 11/18/2024 3:47 AM CDT Kamari Quiroz NP LAB BLOOD ORDERABLES Final Result [facility] [address] [facility] Department [place] [address] * Basic metabolic panel (11/18/2024 3:12 AM CDT) [facility] Sodium 141 135 - 145 mmol/L Potassium, pl 3.3 3.3 - 4.9 mmol/L [facility] Chloride 106 97 - 110 mmol/L [facility] CO2 26 22 - 32 mmol/L [facility] Anion gap 9 2 - 15 mmol/L [facility] BUN 12 6 - 25 mg/dL [facility] Creatinine 0.97 0.80 - 1.30 mg/dL [facility] Glucose 110 70 - 199 mg/dL [facility] Comment: Interpretive Data Fasting glucose >/= 126 mg/dl is diagnostic for diabetes. Fasting is defined as no caloric intake for at least 8 hours. Fasting glucose between 100 mg/dl to 125 mg/dl is diagnostic of prediabetes. In a patient with classic symptoms of hyperglycemia or hyperglycemic crisis, a random glucose >/= 200 mg/dl is diagnostic for diabetes. In the absence of unequivocal hyperglycemia, results should be confirmed by repeat testing. The classification and Diagnosis of Diabetes Diabetes Care 2021; 46: S19-S40. Current interpretive data was last revised 2022. Calcium 8.9 8.5 - 10.3 mg/dL [facility] Blood 11/18/2024 3:12 AM CDT 11/18/2024 3:47 AM CDT Kamari Quiroz NP LAB BLOOD ORDERABLES Final Result Performing Organization Address City/[facility]/ZIP Co de Phone Number [address] [place] [address] * POCT glucose (11/17/2024 8:16 PM CDT) Glucose, POC 104 70 - 199 mg/dL Glucose comment 1 RN/MD Notified [facility] Blood 11/17/2024 8:16 PM CDT 11/17/2024 8:16 PM CDT Piero Love MD LAB POCT ORDERABLES - DEVICE Final Result Performing Organization Address City/[facility]/ZIP Co de Phone Number [address] [place] [address] * eGFR (11/17/2024 11:39 AM CDT) eGFR 89 >=60 mL/min/1. 73 m2 Comment: Interpretive Data Reference Interval Normal >/= 90 mL/min/1.73m2 Mildly decreased* 60 - 89 mL/min/1.73m2 Mildly to moderately decreased 45 - 59 mL/min/1.73m2 Moderately to severely decreased 30 - 44 mL/min/1.73m2 Severely decreased 15 - 29 mL/min/1.73m2 Kidney Failure < 15 mL/min/1.73m2 *Relative to young adult level Estimated glomerular filtration rate is determined by the 2020 CKD-EPI equation recommended by the National Kidney Foundation (A Unifying Approach to GFR Estimation: Recommendations of the NKF-ASK Task Force on Reassessing the Inclusion of Race in Diagnosing Kidney Disease, JASN 2020). The CKD-EPI equation should not be used for patients with unstable renal function and has not been validated in children and those over 70. Current interpretive data was last reviewed 2021. Blood 11/17/2024 11:3 9 AM CDT 11/17/2024 11:44 AM CDT us Tami Boston MD LAB BLOOD ORDERABLES F inal Result [facility] [address] [facility] Department [place] [address] * Differential, auto (11/17/2024 11:39 AM CDT) Neutrophil abs 4.92 1.50 - 6.50 K/cumm Imm gran abs 0.02 0.00 - 0.10 K/cumm [facility] Lymphocyte abs 2.16 0.80 - 3.30 K/cumm [facility] Monocyte abs 0.48 0.20 - 0.80 K/cumm [facility] Eosinophil abs 0.26 0.00 - 0.50 K/cumm [facility] Basophil abs 0.02 0.00 - 0.10 K/cumm [facility] Neutrophil pct 62.5 % [facility] Comment: Interpretive Data Percent cell count reference ranges are not reported, since discordance with absolute values may lead to misinterpretation of CBC data. Current Interpretive Data was last revised on 2017. Imm gran pct 0.3 % [facility] Comment: Interpretive Data Percent cell count reference ranges are not reported, since discordance with absolute values may lead to misinterpretation of CBC data. Current Interpretive Data was last revised on 2017. Lymphocyte pct 27.5 % [facility] Comment: Interpretive Data Percent cell count reference ranges are not reported, since discordance with absolute values may lead to misinterpretation of CBC data. Current Interpretive Data was last revised on 2017. Monocyte pct 6.1 % [facility] Comment: Interpretive Data Percent cell count reference ranges are not reported, since discordance with absolute values may lead to misinterpretation of CBC data. Current Interpretive Data was last revised on 2017. Eosinophil pct 3.3 % [facility] Comment: Interpretive Data Percent cell count reference ranges are not reported, since discordance with absolute values may lead to misinterpretation of CBC data. Current Interpretive Data was last revised on 2017. Basophil pct 0.3 % [facility] Comment: Interpretive Data Percent cell count reference ranges are not reported, since discordance with absolute values may lead to misinterpretation of CBC data. Current Interpretive Data was last revised on 2017. Blood 11/17/2024 11:3 9 AM CDT 11/17/2024 11:44 AM CDT Tami Boston MD LAB BLOOD ORDERABLES F inal Result Performing Organization Address City/[facility] Co de Phone Number [address] [address] * Thyroid Function [place] (11/17/2024 11:39 AM CDT) Pathologist [facility] TSH 0.64 0.30 - 4.20 mcIUnit/mL Blood 11/17/2024 11:3 9 AM CDT 11/17/2024 11:44 AM CDT Tami Boston MD LAB BLOOD ORDERABLES F inal Result Performing Organization Address [facility] Co de Phone Number [address] [place] [address] * (ABNORMAL) Iron profile w/ IBC (11/17/2024 11:39 AM CDT) Pathologist [facility] Iron 48(L) 50 - 150 mcg/dL TIBC 233(L) 250 - 400 mcg/dL [facility] Transferrin saturation 21 20 - 50 % [facility] Blood 11/17/2024 11:3 9 AM CDT 11/17/2024 11:44 AM CDT us Kamari Quiroz NP LAB BLOOD ORDERABLES Final Result Performing Organization Address City/[facility] Co de Phone Number [facility]ORA[facility] [address] [facility] Department [place] [address] * (ABNORMAL) Urinalysis reflex to microscopic and culture Urine (11/17/2024 11:39 AM CDT) Color, ur Yellow Yellow Clarity, ur Cloudy(A) Clear [facility] Specific gravity, ur 1.030 1.003 - 1.030 [facility] pH, urine 6.0 [facility] Comment: Interpretive Data U rine pH is affected by diet, medications, systemic acid-base disturbances, and renal tubular function. pH may affect urinary stone formation. For example, urine pH below 6.0 may help reduce the tendency for calcium phosphate stones and pH greater than 6.0 may reduce the tendency for uric acid stone formation. Source: [facility] Current Interpretive Data was last revised on 2017 Protein, ur ql Negative Negative [facility] Glucose, ur ql Negative Negative [facility] Ketones, ur Negative Negative [facility] Bilirubin, ur Negative Negative [facility] Blood, ur 1+(A) Negative [facility] Urobilinogen, ur 2.0(A) <2.0 mg/dL [facility] Nitrite, ur Negative Negative [facility] Leukocyte esterase, ur 2+(A) Negative [facility] UA reflex comment Reflex to microscopic UA will be performed. [facility] Urine 11/17/2024 11:3 9 AM CDT 11/17/2024 11:44 AM CDT us Tami Boston MD LAB MICROBIOLOGY - GEN ERAL ORDERABLES Final Result Performing Organization Address City/[facility]/ZIP Co de Phone Number ZORAIDA [address] [facility] Department [place] [address] * (ABNORMAL) CBC with auto differential (11/17/2024 11:39 AM CDT) WBC 7.86 3.80 - 9.90 K/cumm Hgb 11.8(L) 13.0 - 17.5 g/dL [facility] Hct 36.5(L) 38.9 - 50.3 % [facility] Plt 386 150 - 400 K/cumm [facility] MPV 8.9(L) 9.1 - 12.3 fL [facility] RBC 4.01(L) 4.30 - 5.80 M/cumm [facility] MCV 91.0 81.3 - 96.4 fL [facility] MCH 29.4 27.1 - 33.3 pg [facility] MCHC 32.3 32.3 - 35.7 g/dL [facility] RDW CV 13.5 11.1 - 14.9 % [facility] RDW SD 45.4 35.7 - 48.1 fL [facility] NRBC abs 0.00 0.00 - 0.01 K/cumm [facility] Blood Venous blood specimen / Unknown 11/17/2024 11:39 AM CDT 11/17/2024 11:44 AM CDT us Tami Boston MD LAB BLOOD ORDERABLES F inal Result [facility] [address] [facility] Department [place] [address] * (ABNORMAL) Drugs of Abuse Screen, Urine without Confirmation (11/17/2024 11:39 AM CDT) Pathologist [facility] Amphetamine, ur Screen Positive, presumptive (A) CutOff 500ng/mL Comment: Interpretive Data - Amphetamines: Samples containing greater than 500 ng/mL d-methamphetamine or other cross-reacting amphetamine compounds are reported as positive. Amphetamine immunoassays are subject to significant false positive rates due to cross-reactivity of non-amphetamine drugs. Confirmatory testing required for definitive results. Current Interpretive Data was last reviewed 2022. Barbiturates, ur Not Detected CutOff 200ng/mL [facility] Comment: Interpretive Data - Barbiturates: Samples containing greater than 200 ng/mL secobarbital or other cross-reacting barbiturate compounds are reported as positive. False positive and false negative results are possible. Confirmatory testing required for definitive results. Current Interpretive Data was last reviewed 2022. Benzodiazepines, ur Not Detected CutOff 100ng/mL [facility] Comment: Interpretive Data - Benzodiazepines: Samples containing greater than 100 ng/mL nordiazepam or other cross-reacting compounds are reported as positive. False positive and false negative results are possible. Confirmatory testing required for definitive results. Current Interpretive Data was last reviewed 2022. Cannabinoids, ur Not Detected CutOff 50 ng/mL [facility] Comment: Interpretive Data - Cannabinoids: Samples containing greater than 50 ng/mL delta-9 THC -COOH or other cross- reacting compounds are reported as positive. False positive and false negative results are possible. Confirmatory testing required for definitive results. Current Interpretive Data was last reviewed 2022. Cocaine, ur Screen Positive, presumptive (A) CutOff 150ng/mL [facility] Comment: Interpretive Data - Cocaine: Samples containing greater than 150 ng/mL benzoylecgonine or other cross- reacting compounds are reported as positive. False positive and false negative results are possible. Confirmatory testing required for definitive results. Current Interpretive Data was last reviewed 2022. Fentanyl, Ur Screen Positive, presumptive (A) CutOff 5 ng/mL [facility] Comment: Interpretive Data - Fentanyl: Samples containing greater than 5 ng/mL norfentanyl, fentanyl, or other cross-reacting fentanyl compounds are reported as positive. False positive and false negative results are possible. Confirmatory testing required for definitive results. Current Interpretive Data was last reviewed 2023. Methadone, ur Not Detected CutOff 300ng/mL [facility] Comment: Interpretive Data - Methadone: Samples containing greater than 300 ng/mL d,l-methadone or other cross-reacting compounds are reported as positive. False positive and false negative results are possible. Confirmatory testing required for definitive results. Current Interpretive Data was last reviewed 2022. Opiates, ur Screen Positive, presumptive (A) CutOff 300ng/mL [facility] Comment: Interpretive Data - Opiates: Samples containing greater than 300 ng/mL morphine or other cross-reacting compounds are reported as positive. False positive and false negative results are possible. Confirmatory testing required for definitive results. Current Interpretive Data was last reviewed 2022. Oxycodone, ur Not Detected CutOff 100ng/mL [facility] Comment: Interpretive Data - Oxycodone: Samples containing greater than 100 ng/mL oxycodone or other cross-reacting compounds are reported as positive. False positive and false negative results are possible. Confirmatory testing required for definitive results. Current Interpretive Data was last reviewed 2022. Phencyclidine, ur Not Detected CutOff 25 ng/mL [facility] Comment: Interpretive Data - Phencyclidine: Samples containing greater than 25 ng/mL phencyclidine or other cross-reacting compounds are reported as positive. False positive and false negative results are possible. Confirmatory testing required for definitive results. Current Interpretive Data was last reviewed 2022. Urine Creatinine 322 mg/dL [facility] Comment: Interpretive Data Urine Creatinine: < 10 mg/dL is extremely dilute = or > 10 but < 20 mg/dL is dilute = or > 20 mg/dL is normal Current Interpretive Data was last revised on 2017. Urine 11/17/2024 11:3 9 AM CDT 11/17/2024 11:44 AM CDT Narrative [facility] - 11/17/2024 12:09 PM CDT Drug of Abuse screening is performed by immunoassay for medical purposes only. This is not to be used for Pain Management purposes. Tami Boston MD LAB URINE ORDERABLES F inal Result [place] [id number] [facility] Department [place] [address] * (ABNORMAL) Urinalysis, microscopic only (11/17/2024 11:39 AM CDT) WBC, ur 11-20(A) 0 - 5 /HPF RBC, ur 11-20(A) 0 - 2 /HPF [facility] Epithelial cells, squamous, ur 1-5 0 - 5 /HPF [facility] Mucous, ur Present(A) [facility] Calcium oxalate crystals, ur 3+(A) [facility] Culture Reflex Comment Reflex to urine culture will be performed. [facility] Urine 11/17/2024 11:3 9 AM CDT 11/17/2024 11:44 AM CDT Tami Boston MD LAB URINE ORDERABLES F inal Result Performing Organization Address [facility] Co de Phone Number [address] [place] [address] * Urine culture Urine (11/17/2024 11:39 AM CDT) Report Final Report: Less than 100,000 colonies/mL (clinically insignificant growth based on current clinical standards) Comment:Testing performed by : [facility], [address] [place]., [address] Organism (CLINICALLY INSIGNIFICANT GROWTH [facility]ORAIDA Urine 11/17/2024 11:3 9 AM CDT 11/17/2024 4:47 PM CDT Narrative [facility] - 11/18/2024 7:17 PM CDT Urine culture reflexed based upon urinalysis results. Testing performed by [facility] ([phone]) Efren Giron DO LAB MICROBIOLOGY - GENERAL ORD ERABLES Final Result Performing Organization Address [facility] de Phone Number [address] [place] [address] * (ABNORMAL) Hemoglobin A1c (11/17/2024 11:39 AM CDT) Hgb A1C 6.4(H) 4.0 - 5.6 % Estimated Average Glucose 137 mg/dL [facility]IDA Comment: The ADA recommends reporting an estimated Average Glucose (eAG) with all Hemoglobin A1c results using the equation derived from a study of 507 normal and diabetic adults. Minority populations were underrepresented and children were not included. (Diabetes Care 31:1497-0876, 2008). The eAG is not equivalent to a fasting glucose. Blood 11/17/2024 11:3 9 AM CDT 11/17/2024 11:44 AM CDT Kamari Quiroz NP LAB BLOOD ORDERABLES Final Result Performing Organization Address City/[facility] Co de Phone Number ZORAIDA [address] [place] [address] * Ferritin (11/17/2024 11:39 AM CDT) Pathologist [facility] Ferritin 131 30 - 400 ng/mL Blood 11/17/2024 11:3 9 AM CDT 11/17/2024 11:44 AM CDT Kamari Quiroz NP LAB BLOOD ORDERABLES Final Result Performing Organization Address [facility] Co de Phone Number [address] [place] [address] * Vitamin B12 (11/17/2024 11:39 AM CDT) Pathologist [facility] Vitamin B12 401 230 - 1,250 pg/mL Blood 11/17/2024 11:3 9 AM CDT 11/17/2024 11:44 AM CDT Kamari Quiroz NP LAB BLOOD ORDERABLES Final Result Performing Organization Address [facility] de Phone Number [address] [place] [address] * Ethanol (11/17/2024 11:39 AM CDT) [facility] Ethanol <10 <=10 mg/dL Comment: Interpretive Data Legal limit of intoxication > or = 80 mg/dL Levels > or = 400 mg/dL are potentially TOXIC. Current interpretive data was last revised on 2018. Blood 11/17/2024 11:3 9 AM CDT 11/17/2024 11:44 AM CDT Tami Boston MD LAB BLOOD ORDERABLES F inal Result Performing Organization Address [facility] Co de Phone Number [address] [place] [address] * Comprehensive metabolic panel (11/17/2024 11:39 AM CDT) Pathologist [facility] Sodium 139 135 - 145 mmol/L Potassium, pl 3.5 3.3 - 4.9 mmol/L [facility] Chloride 104 97 - 110 mmol/L [facility] CO2 27 22 - 32 mmol/L [facility] Anion gap 8 2 - 15 mmol/L [facility] BUN 17 6 - 25 mg/dL [facility] Creatinine 1.01 0.80 - 1.30 mg/dL [facility] Glucose 143 70 - 199 mg/dL [facility] Comment: Interpretive Data Fasting glucose >/= 126 mg/dl is diagnostic for diabetes. Fasting is defined as no caloric intake for at least 8 hours. Fasting glucose between 100 mg/dl to 125 mg/dl is diagnostic of prediabetes. In a patient with classic symptoms of hyperglycemia or hyperglycemic crisis, a random glucose >/= 200 mg/dl is diagnostic for diabetes. In the absence of unequivocal hyperglycemia, results should be confirmed by repeat testing. The classification and Diagnosis of Diabetes Diabetes Care 2021; 46: S19-S40. Current interpretive data was last revised 2022. Calcium 9.2 8.5 - 10.3 mg/dL [facility] Bilirubin, total 0.2 0.1 - 1.2 mg/dL [facility] Protein, pl 6.7 6.5 - 8.5 g/dL [facility] Albumin 3.7 3.5 - 5.0 g/dL [facility] Alk phos 130 40 - 130 Units/L [facility] ALT 21 7 - 55 Units/L [facility] AST 23 10 - 50 Units/L [facility] Blood 11/17/2024 11:3 9 AM CDT 11/17/2024 11:44 AM CDT us Tami Boston MD LAB BLOOD ORDERABLES F inal Result [facility] [address] [facility] Department [place] [address] * TNI with LIPID PANEL (08/21/2017 11:10 PM CDT) [facility] Troponin I < 0.300 0.000 - 0.300 ng/mL Comment: Reference using SARAH Chemiluminescence Negative: Repeat in 4-6 hours as indicated. Triglycerides 65 0 - 199 mg/dL Comment:12 hr pc highly gloria mmended for Triglyceride Cholesterol 177 0 - 199 mg/dL Comment: Borderline: 200-239 High Risk: >239 HDL Cholesterol 61 mg/dL 8 11:46 PM T [facility] HISTORICAL RESULTS Comment: Reference Ranges: Males: >=40 mg/dL Females: >=50 mg/dL LDL Cholesterol, Calc 103 0 - 130 mg/dL Comment:High Risk > 159 mg/d L Cholesterol/HDL Ratio 2.9 Comment: Cholesterol / HDL Ratio 3.5:1 or less is desirable. Cholesterol / HDL Ratio greater than 5:1 is considered higher risk for developing heart disease. 08/21/2017 11:1 0 PM CDT 08/21/2017 11:15 PM CDT us Bhavana Vazquez DIRECTOR [employer]ENT MARKETING LAB BLOOD ORDERABLES Final Resu lt [facility] HISTORICAL RESULTS from Last 3 Months or Most Recently Relevant to Health Maintenance Insurance AETNA [facility] AETNA BETTER [facility] Advance Directives For more information, please contact: [phone] * Full Code (Latest Code Status on File) Date Activated Date Inactivated Comments 02/04/2025 1:16 PM 02/08/2025 12:49 PM * Full Code Date Activated Date Inactivated Comments 11/17/2024 6:45 PM 11/19/2024 3:37 PM Care Teams Folder Seamer Automatic Relationship Specialty Start Date End Date Armando Holder MD [address] [address] PCP - General 11/25/18
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
--- OUTSIDE RECORDS SUMMARY | 2025-02-11 11:08 | XMS_ITS | Patient Health Record ---
Author Organization Formerly [facility] Address [address] [place] [address] Care Team Providers Care Photogravure Press Operator Name Role Phone Herbertang Edgard Primary Care Provider Scottiesonya Tamisamantha Unavailable [phone] Amelia Mendez Unavailable [phone] Allergies Allergen (clinical drug ingredient) Drug/Non Drug Allergy documented on EMR Reaction Allergy Type Onset Date Status Penicillin Unknown Drug Allergy Active Results Component Value Reference Range Notes Breathalyzer Reviewed date:02/08/2025 11:46:56 AM Interpretation: Performing Lab: Notes/Report: MELISA 0.000 QuantiFERON-TB Gold Plus ([id number]) (Not yet reviewed by provider) Interpretation: Performing Lab:[facility], [address], Phone - [phone], Director - [facility] Notes/Report: QuantiFERON Incubation Incubation performed. QuantiFERON-TB Gold Plus Negative Negative No response to M tuberculosis antigens detected. Infection with M tuberculosis is unlikely, but high risk individuals should be considered for additional testing (ATS/IDSA/CDC Clinical Practice Guidelines, 2017). The reference range is an Antigen minus Nil result of <0.35 IU/mL. Chemiluminescence immunoassay methodology QuantiFERON Criteria QuantiFERON-TB Gold Plus is a qualitative indirect test for M tuberculosis infection (including disease) and is intended for use in conjunction with risk assessment, radiography, and other medical and diagnostic evaluations. The QuantiFERON-TB Gold Plus result is determined by subtracting the Nil value from either TB antigen (Ag) value. The Mitogen tube serves as a control for the test. QuantiFERON TB1 Ag Value 0.06 QuantiFERON TB2 Ag Value 0.09 QuantiFERON Nil Value 0.04 QuantiFERON Mitogen Value >10.00 CMP 14 Comprehensive Metabol ic Panel* (Not yet reviewed by provider) Interpretation: Performing Lab[facility], [address], Phone - [phone], Director - [facility] Notes/Report: Glucose 146 70-99 mg/dL BUN 16 6-24 mg/dL Creatinine 1.26 0.76-1.27 mg/dL eGFR 69 >59 mL/min/1.73 BUN/Creatinine Ratio 13 9-20 Sodium 141 134-144 mmol/L Potassium 4.2 3.5-5.2 mmol/L Chloride 100 96-106 mmol/L Carbon Dioxide, Total 23 20-29 mmol/L Calcium 9.6 8.7-10.2 mg/dL Protein, Total 6.8 6.0-8.5 g/dL Albumin 4.2 3.8-4.9 g/dL Globulin, Total 2.6 1.5-4.5 g/dL Bilirubin, Total 0.3 0.0-1.2 mg/dL Alkaline Phosphatase 111 47-123 IU/L Pleas e note reference interval change AST (SGOT) 17 0-40 IU/L ALT (SGPT) 14 0-44 IU/L CBC With Differential/Platel et* (Not yet reviewed by provider) Interpretation: Performing Lab:[facility], [address], Phone - [phone], Director - [facility] Notes/Report: WBC 9.0 3.4-10.8 x10E3/uL RBC 4.38 4.14-5.80 x10E6/uL Hemoglobin 13.6 13.0-17.7 g/dL Hematocrit 41.3 37.5-51.0 % MCV 94 79-97 fL MCH 31.1 26.6-33.0 pg MCHC 32.9 31.5-35.7 g/dL RDW 15.5 11.6-15.4 % Platelets 256 150-450 x10E3/uL Neutrophils 65 Not Estab. % Lymphs 26 Not Estab. % Monocytes 7 Not Estab. % Eos 2 Not Estab. % Basos 0 Not Estab. % Neutrophils (Absolute) 5.9 1.4-7.0 x10E3/uL Lymphs (Absolute) 2.3 0.7-3.1 x10E3/uL Monocytes(Absolute) 0.7 0.1-0.9 x10E3/uL Eos (Absolute) 0.1 0.0-0.4 x10E3/uL Baso (Absolute) 0.0 0.0-0.2 x10E3/uL Immature Granulocytes 0 Not Estab. % Immature Grans (Abs) 0.0 0.0-0.1 x10E3/uL 14 Panel Urine Drug Screen Reviewed date:02/08/2025 11:47:33 AM Interpretation: Performing Lab: Notes/Report: THC neg SEFERINO neg MOP (OPI) neg AMP neg MET POS BAR neg BZO neg MDMA neg MTD neg OXY neg PCP neg BUP neg TCA neg FTY POS Reason For Referral No Information Medications Medication SIG (Take, Route, Frequency, Duration) [...] dissolve Sublingual twice a day 02/10/2025 Active metFORMIN HCl 500 MG 1 tablet with a claudio l Orally Once a day; Duration: 30 days Active Multi Vitamin - 1 tablet Orally [...] with others, in a hotel, in a usp, living outside on the street, on a [...] phone, visiting friends or family, going to latter day or club meetings) More than 5 times a week How stressed are you? Stress is when someone feels tense, nervous, anxious, or can\t sleep at night because their mind is troubled Very much In the past year have you sp ent more than 2 nights in a row in a longterm, chcf, long term center, or juvenile correctional facility? Yes What [...] Problem Status W/U Status Risk Notes Problem Hypertension (86202013) Hypertension (I10) Active confirmed Problem Substance abuse (5638252409) Substance abuse (F19.10) Active confirmed Problem Type 2 diabetes mellitus (07958790) Type 2 diabetes mellitus (E11.9) Active confirmed Problem Obesity (000601332) Obesity (BMI 30-39.9) (E66.9) Active confirmed Problem Nondependent opioid abuse (199724019) Opiate use (F11.90) Active confirmed Problem Physical examination, complete (63528901) Adult general medical examination (Z00.00) Active confirmed Problem Opioid use disorder (1423982303) Opioid use disorder (F11.99) Active confirmed Problem Tobacco user (178721074) Nicotine dependence with current use (F17.200) Active confirmed Vital Signs Heart Rate 75 /min 02/10/2025 Temperature 97.6 degrees Fahrenheit 02/08/2025 Respiratory Rate 16 /min 02/10/2025 Oximetry 98 % 02/10/2025 Blood pressure diastolic 82 mm Hg 02/10/2025 Height 69 in 02/10/2025 Blood pressure systolic 124 mm Hg 02/10/2025 Weight 235.8 lbs 02/10/2025 BMI 34.82 kg/m2 02/10/2025 Encounters Encounter Location Date Provider Diagnosis Formerly [facility] [place] [address] 02/08/2025 Edgard Maurice Over weight E66.3 ; Adult general medical examination Z00.00 ; Hypertension I10 ; Type 2 diabetes mellitus E11.9 and Opiate use F11.90 Formerly [facility] [place] [address] 02/08/2025 Amelia Mendez Over weight E66.3 an d Substance abuse F19.10 Formerly [facility] [place] [address] 02/10/2025 Juan Quesada Opioid use disorder F11.99 ; Obesity (BMI 30-39.9) E66.9 and Nicotine dependence with current use F17.200 Assessments Encounter Date Diagnosis (ICD Code) Assessment Notes Treatment Notes Treatment Clinical Notes Section Notes 02/08/2025 Over weight (ICD-10 - E66.3) 02/10/2025 Obesity (BMI 30-39.9) (ICD-10 - E66.9) 02/10/2025 Opioid use disorder (ICD-10 - F11.99) Long-standing opioid use history, including pain pills, heroin, and daily fentanyl use. Last opioid use was five days ago; currently admitted for detox. Started Suboxone at [facility]; currently managed on Suboxone. Experiencing mild [...] - Advise keeping Narcan available at home. 02/08/2025 Over weight (ICD-10 - E66.3) 02/08/2025 Adult general medical examination (ICD-10 - Z00.00) Admit to the [facility] and initiate standing/protocol orders: The following PRN medications may be self-administered by patients under the supervision of approved staff or administered by nursing staff: Ibuprofen 200mg, 2-4 tablets by mouth (with food) every 6 hours as needed for pain (unless on lithium). (NOTE: Ibuprofen and acetaminophen may be given together, but alternating is recommended for continuous pain relief. Guaifenesin 400 mg, 1 tablet by mouth every four hours as needed for cough and chest congestion (take with large glass of water). Loratadine 10 mg, 1 tablet by mouth daily as needed for allergies, watery itchy eyes, or sinus drainage. Throat Lozenges, up to 4 tablets by mouth every three to four hours as needed for sore throat. Antacid tablets, 1-2 tablets by mouth every one to two hours as needed for indigestion or heart burn. If the client prefers liquid, could use: Liquid Antacid : 1 ounce by mouth up to four times daily as needed for indigestion or heartburn Omeprazole 20mg, 1 capsule by mouth once daily for 14 days for frequent heartburn (frequent heartburn is more than 2 episodes per week). Do not exceed 14 days. Do not give to client already taking a proton-pump inhibitor: esomeprazole (Nexium), lansoprazole (Prevacid), pantoprazole (Protonix), rabeprazole (Aciphex), dexlansoprazole (Dexilant) Zofran ODT disintegrating (under the tongue) 4 mg, 1-2 tablets every 8 hours as needed for nausea/vomiting. Milk of Magnesia (MOM): 1 ounce (30 milliliters) by mouth every day as needed for constipation. OR Miralax: Stir and fully dissolve 17 grams (1 packet or 1 capful to measured line) in any 4 to 8 ounces of beverage then drink once daily for constipation. Do not use for more than 7 days. OR Docusate 100 mg, 1 capsule twice daily as needed for constipation Hydrocortisone 1% Cream, apply topically (to the skin) to the affected area up to three times daily as needed for itching or inflammation (avoid eyes and genitals). 2% Antifungal Cream, apply topically (to the skin) as directed as needed to affected areas for athlete's foot or jock itch. Triple Antibiotic Ointment, apply topically (to the skin) up to three times daily as needed for minor cuts and scrapes. Carmex or Chapstick, apply topically (to the skin) as needed for chapped lips and skin. Orajel, apply to affected areas as needed for mouth or tooth pain. Lubricating Eye Drops, instill 1-2 drops to the affected eye(s) as needed for dry/irritated eye(s). Hemorrhoid medications, apply to affected area according to directions as needed for hemorrhoid discomfort and itch. Nix (Permethrin 1%) cream 2 ounces, apply topically (to the skin) as directed as needed for head lice. Sunscreen 30 SPF, Apply to exposed skin prior to exposure to sun. The following PRN medications must be approved by nursing staff before self-administratio n by patients: Diphenhydramine 25 mg, 2 tablets by mouth every 4 hours as needed for allergic reaction or itchy rash. Caution: Do not use hydroxyzine within 4 hours of diphenhydramine and vice versa. Loperamide 2 mg capsules, may give two capsules by mouth for the initial dose, followed by one capsule up to 3 times a day as needed for diarrhea. Acetaminophen 500 mg, 1 - 2 tablets by mouth every six hours as needed for pain. (NOTE: Ibuprofen and acetaminophen may be given together, but alternating is recommended for continuous pain relief). Oxygen-May administer oxygen 2L/min via nasal cannula if O2 saturation is less than 92%, AND client complains of shortness of breath. Target O2 saturation is 94-98%. Caution: Remember too much oxygen can be detrimental to a client with COPD. Oxygen is a drug and should be delivered by trained staff only. Nurses may remove superficial splinters and sutures from skin lacerations. May apply gauze or bandages to any weeping wounds. Contact nursing if there is pus, a foul odor, increased pain/redness/swell ing, or if soaking through bandages. 02/08/2025 Substance abuse (ICD-10 - F19.10) 02/10/2025 Nicotine dependence with current use (ICD-10 - F17.200) 02/08/2025 Hypertension (ICD-10 - I10) 02/08/2025 Type 2 diabetes mellitus (ICD-10 - E11.9) 02/08/2025 Opiate use (ICD-10 - F11.90) 02/08/2025 Other Continue treatment as recommended by [facility] staff. Encouraged patient to obtain routine medical care with patient's own primary care provider or establish as a patient at [facility] if no current primary care provider. 02/08/2025 Other Clinician met w ith client to assess needs for residential services. Clinician gathered information regarding historical presentation of mental health and substance use symptoms including withdrawal, HIV Risk assessment, psychiatric hospitalization history and presenting concern. Clinician conducted PHQ9 and CSSRS assessments as well as social drivers of health screening for the purposes of identifying additional service needs. 02/10/2025 Other Discussed medication side effects, adverse effects, risks, benefits, as well as interactions. Encouraged non-use of opioids. Has naloxone. Recommended participation in recovery groups and/or counseling services. May contact office with questions or concerns. Patient may self-administe r their own medications or may self-administe r their own oral medications per [facility] Protocol. Plan Of Treatment Future Test Test Name Order Date CBC With Differential/Platelet* 02/09/20 CMP 14 Comprehensive Metabolic Panel* QuantiFERON-TB Gold Plus ([id number]) 2024 Next Appt Details Provider Name:Romy Acevedo fl, 02/16/2025 11:00:00 AM, [address], [place], [address], Insurance Providers Payer Name Payer Address Payer Phone Subscriber Number Group Number Insured Name Patient Relationship to Insured Coverage Start Date Coverage End Date [employer] [facility] [address] [place] [phone] [id number] Melo Colin Self - patient is the insured 5 Medical (General) History Medical History History ICD Code Diabetes hypertension Opioid use disorder Surgical History Surgery Date(Month/Year) Hospitalization History Reason Date(Month/Year) [facility] - detox 01/2025
[2025-02-11 11:47] LABS: Cannabinoid Screen Urine Negative (Negative)
--- NOTE | 2025-02-11 12:19 | ECG_ITS ---
Test Date: 2025-02-11 12:54:03 Measurements Intervals [place] Rate: 55 P: 38 ND: 187 QRS: 24 QRSD: 104 T: 26 QT: 424 QTc: 407 Interpretive Statements SINUS BRADYCARDIA NONSPECIFIC T-WAVE ABNORMALITY Compared to ECG 02/11/2025 09:27:50 Sinus rhythm no longer present T-wave abnormality still present Electronically Signed On 02-11-2025 15:24:26 CDT by Guanako Bowie M.D.
[2025-02-11 12:53] LABS: Troponin I < 0.012 ng/mL (0.000-0.034)
[2025-02-11 13:00] VITALS: BP 138/64; PULSE 56; RESP 16; O2SAT 98
== END 2025-02-11 13:01 | disposition home or self-care (01) ==
PROVIDERS: Emergency Provider Emergency Medicine; PCP Family Medicine
DX: R07.89 Other chest pain (principal); R60.0 Localized edema
CPT/HCPCS: 36415; 71046; 71275; 80053; 80307; 83690; 83880; 84484; 85025; 85610; 85730; 93005; 96374; 99284; J1885; Q9967